=== PATIENT | male | born 1950 | race Caucasian/White ===

== ENCOUNTER 2025-03-23 11:02 | Inpatient (IN) ==
--- NOTE | 2025-03-23 11:53 | Emergency Department Note ---
Impression & Plan Cancer related pain, Pathologic acetabular fracture, Lytic bone lesion of hip ED Provider Note NAME: MELLY PEREZ AGE: 74 SEX: M : 1950 ARRIVES VIA: Walk-In INFORMANT: Patient ED PROVIDER(S): Rios Dempsey MD CHIEF COMPLAINT: Right hip/back pain PLAN: Disposition: Admit MEDICAL DECISION MAKING: The patient is a pleasant 74-year-old gentleman with a past medical history of Hypertension, hyperlipidemia, GERD who presents to emergency department via walk-in accompanied by his for evaluation of persistent severe right hip and back pain for the past several weeks in setting of an outpatient workup for lumbar degenerative disease where he has been referred to neurosurgery. They report that the patient had a CT scan of his lumbar spine several weeks ago and then had an x-ray performed recently as well of his right hip that showed no acute fractures. The patient denies any urinary retention or loss of bowel control. [facility] records obtained and CT of the lumbar spine without contrast on 12/24 demonstrated ligamentum flavum hypertrophy with associated mild to moderate spinal canal stenosis at the level of L2-L3, L3-L4 and L4-L5. Mild to moderate narrowing of the thecal sac as described. Bilateral neuroforaminal stenosis is also noted though severity is greater on the left than right. Patient's reports that because of the more severe left-sided findings which did not correlate with the patient's pain she grew more suspicious and wanted to make sure that the patient's pain was not related to something else. Thus he had an x-ray performed of bilateral hips and pelvis which demonstrated bilateral hip osteoarthritis. Note is made of a stable subchondral lucency seen at the anterior superior aspect of the acetabulum which appears grossly unchanged since multiple prior radiographs where pelvis x-ray from 2018 is noted as a comparison. Of note, the patient reports a remote history of a titanium plate on his skull where he was told by his surgeon that because of the screws he could never have an MRI. On evaluation the patient is no distress, afebrile with blood pressure 150/80s and vital signs otherwise stable. He exhibits mild discomfort with palpation of the right gluteal region inferior to the PSIS. He has normal strength in bilateral lower extremities. Reflex within normal limits. There is no clonus. L5 intact bilaterally. Right hip with limited range of motion secondary to pain. WBC and platelet within normal limits. H/H 12.7/30.5 without recent for comparison. Chemistry without metabolic acidosis. Electrolytes LFTs unremarkable. HS troponin 3.4, within normal limits. UA without evidence of infection. RBCs are noted and are nonspecific. CT of the ab pelvis and CT lumbar spine were performed. Findings are notable for several lytic skeletal lesions the largest measuring 5.4 x 3.5 cm in the right acetabulum with associated nondisplaced pathologic acetabular fracture and adjacent enhancing soft tissue suggestive of tumor extension. The findings favor metastatic disease though multiple myeloma is within the differential. Note is made of clustered pathologic distal paraesophageal lymph nodes suggestive of jayshree metastases. A 1.2 cm left lower lobe pulmonary nodule is also suspicious for metastases. Description of the hypodensity in the right internal iliac vein favors mixing artifact though DVT could appear similar. Clinically the patient has no lower extremity swelling but patient's pain is confounding in the setting of his lytic lesion. Case was discussed with Dr. Cuellar, orthopedic surgery. Given involvement of the acetabulum and underlying pathologic fracture with undiagnosed malignancy recommends transfer to tertiary care center where Orthopedic-oncology is available. Case was discussed with Dr. Ellis, [place] hematology-oncology. Will defer to orthopedic recommendations for disposition but if patient were to stay at our facility he will be available for inpatient team consultation for new malignancy evaluation/workup. Case was discussed with [facility] [place] with conference including Dr. Chaudhary, [facility] [place]opedic[facility] and Lele Herr [place] orthopedic surgery MARILYNN. Per Dr. Chaudhary, [facility] Orthopedic[facility]oncology, who was able to review images which were sent via [employer] image, recommendations would be for the patient to maintain touchdown weightbearing as tolerated with use of a walker. Thus no indication for transfer to [facility] at this time and patient can remain at our facility for further evaluation and management. He will be available for outpatient evaluation when appropriate to address the patient's acetabular findings. Case was discussed with Dr. Zapata, [facility] hospitalist, who will evaluate the patient for admission. Of note, D-dimer subsequently elevated at 4K. Admitting team aware. Further management per admitting team. Appreciate consultations and recommendations. Triage Nursing notes reviewed and agree them. Prior/external medical records reviewed Vital Signs: reviewed Differential diagnosis: Fracture, subluxation, dislocation, contusion, ligamentous injury, neurovascular, compartment syndrome, rhabdomyolysis, as well as other pathologies. ER treatment provided: See below. Diagnostics interpreted by me: ECG: Normal sinus rhythm, 70 bpm, no ectopy, no overt ST elevation or depression, QTc 421, QRS 84. Cardiac Monitoring: An order for continuous cardiac monitoring was placed and demonstrated normal sinus rhythm, 70 bpm, no ectopy. Laboratory studies: See below Imaging studies: See below Consultation(s): Dr. Cuellar, orthopedic surgery Lele Herr, orthopedic surgery MARILYNN Dr. Ellis, [place] hematology-oncology Dr. Chaudhary, [facility] ortho-oncology HPI: Per MDM. ROS: See above HPI for pertinent positives & negatives. A total of 10 systems reviewed and were otherwise negative. VITALS:See Below PHYSICAL EXAMINATION: GENERAL: Awake, alert, in no distress HENT: Normocephalic, atraumatic. Oropharynx with dry mucous membranes and otherwise unremarkable. EYES: Normal conjunctiva. Sclera non-icteric. NECK: Supple. No nuchal rigidity. FROM. No JVD. RESPIRATORY: Clear to auscultation. CARDIAC: Regular rate, normal rhythm. Extremities warm and well perfused. Pulses equal. ABDOMEN: Soft, non-distended. No tenderness to palpation. No rebound or guarding. No masses. MUSCULOSKELETAL: Chest examination reveals no tenderness. The back is symmetrical on inspection without obvious abnormality. mild discomfort with palpation of the right gluteal region inferior to the PSIS. There is no CVA tenderness to palpation. No joint edema. Right hip with limited range of motion secondary pain. LOWER EXTREMITIES: Calves are equal size bilaterally and non-tender. No edema. No discoloration. NEURO: Normal sensorium. No focal sensory or motor deficits noted. Normal strength in bilateral lower extremities. Reflex within normal limits. There is no clonus. L5 intact bilaterally. SKIN: No rash or jaundice noted. Rios Dempsey MD Past Med/Surg History Problem List (Updated 03/24/25 @ 01:59 by Rios Dempsey MD) Lytic bone lesion of hip (Acute) Pathologic acetabular fracture (Acute) Severe protein-calorie malnutrition Cancer related pain (Acute) 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 Carpal tunnel syndrome, right Ulnar neuropathy at elbow of right upper extremity Rhinitis Hypercholesterolemia (Acute) Detached retina (Acute) Sensorineural hearing loss (SNHL) of both ears Tinnitus of both ears Asymmetrical right sensorineural hearing loss (Acute) Hearing loss (Acute) TMJ (dislocation of temporomandibular joint) (Acute) Pain in left axilla (Acute) Medical History GERD (gastroesophageal reflux disease) Pneumothorax Palpitations Surgical History History of knee surgery History of inguinal hernia repair History of cholecystectomy History of back surgery Family History Mother Diabetes Heart disease Father Heart disease Social History Smoking Status: Former smoker Cigarettes Per Day: up to 1 pack per day; Do You Dip or Chew Tobacco: No; Hx Alcohol Use: Yes Alcohol Intake Frequency Comment: socially/weekends Hx Substance Use: No Preferred Language: Maldivian Communication Ability: Effective Fur Dresser Required: No Beliefs That Will Affect Care: None Current Living Situation: Spouse Feels Safe at Home: Yes Assistive Devices: Walker Allergies Allergies Allergy/AdvReac Type Severity Reaction Status Date / Time naproxen Allergy Intermediate "I get Verified 01/28/25 08:11 numb in my face" Home Meds Home Medications Medication Instructions Recorded Confirmed loteprednol etabonate 0.5 % eye 0 drp ophthalmic (eye) UD 05/28/19 03/23/25 gel drops multivitamin (Daily Multi-Vitamin 1 tab PO DAILY 05/28/19 03/23/25 tablet) timolol maleate 0.5 % once daily 0 drp ophthalmic (eye) DAILY 05/28/19 03/23/25 eye drops coenzyme Q10 30 mg capsule (CoQ-10) 30 mg PO DAILY 12/26/19 03/23/25 ascorbate calcium (vitamin C) 500 500 mg PO DAILY 04/26/22 03/23/25 mg tablet diclofenac sodium 50 mg 50 mg PO BID 03/23/25 03/23/25 tablet,delayed release fluticasone propionate 50 0 spray intranasal DAILY PRN 03/23/25 03/23/25 mcg/actuation nasal Congestion spray,suspension gabapentin 100 mg capsule 100 mg PO BID 03/23/25 03/23/25 metoprolol succinate 25 mg 25 mg PO BID 03/23/25 03/23/25 tablet,extended release 24 hr omeprazole 40 mg capsule,delayed 40 mg PO DAILY 03/23/25 03/23/25 release paroxetine HCl 20 mg tablet 0 mg PO DAILY 03/23/25 03/23/25 rosuvastatin 10 mg tablet 10 mg PO DAILY 03/23/25 03/23/25 Previous Rx's Medication Instructions Recorded azelastine 137 mcg (0.1 %) nasal 2 spray intranasal BID 6 weeks #30 08/26/24 spray mL Results & Data (ED) Vital Signs Vital Signs - 24 hr 03/23/25 11:18 03/23/25 13:02 03/23/25 13:04 Temperature 36.6 C Temperature Source Temporal Artery Scan Pulse Rate 72 64 Pulse Rate [Finger] 64 Pulse Rhythm Regular Pulse Rhythm [Finger] Regular Pulse Strength [Finger] Normal Respiratory Rate 18 18 18 Respiratory Effort / Characteristics Non-Labored Spontaneous Non-Labored Spontaneous Respiratory Depth Normal Normal Respiratory Pattern Regular Regular Blood Pressure 155/87 H Blood Pressure [Left Arm] 139/91 Blood Pressure Mean 109 Blood Pressure Mean [Left Arm] 107 Blood Pressure Position [Left Arm] Semi-fowlers Pulse Oximetry 97 98 98 Oxygen Delivery Method Room Air Room Air Room Air Sepsis Recent Fever Within 48 Hours No Sepsis New/Unexplained Change in Mental Status N/A Sepsis Action Taken by Nursing No Action Required 03/23/25 14:28 03/23/25 16:27 03/23/25 19:00 Temperature Temperature Source Pulse Rate Pulse Rate [Finger] 64 71 72 Pulse Rhythm Pulse Rhythm [Finger] Regular Regular Pulse Strength [Finger] Normal Normal Respiratory Rate 16 18 18 Respiratory Effort / Characteristics Non-Labored Spontaneous Non-Labored Spontaneous Respiratory Depth Normal Normal Respiratory Pattern Regular Regular Blood Pressure Blood Pressure [Left Arm] 146/83 H 161/122 H 152/87 H Blood Pressure Mean Blood Pressure Mean [Left Arm] 104 135 108 Blood Pressure Position [Left Arm] Sitting Semi-fowlers Lying Pulse Oximetry 98 100 97 Oxygen Delivery Method Room Air Room Air Room Air Sepsis Recent Fever Within 48 Hours Sepsis New/Unexplained Change in Mental Status Sepsis Action Taken by Nursing 03/23/25 20:00 Temperature Temperature Source Pulse Rate Pulse Rate [Finger] 76 Pulse Rhythm Pulse Rhythm [Finger] Regular Pulse Strength [Finger] Normal Respiratory Rate 20 Respiratory Effort / Characteristics Non-Labored Spontaneous Respiratory Depth Normal Respiratory Pattern Regular Blood Pressure Blood Pressure [Left Arm] 148/82 H Blood Pressure Mean Blood Pressure Mean [Left Arm] 104 Blood Pressure Position [Left Arm] Lying Pulse Oximetry 95 Oxygen Delivery Method Room Air Sepsis Recent Fever Within 48 Hours Sepsis New/Unexplained Change in Mental Status Sepsis Action Taken by Nursing Laboratory Data Attestation: I reviewed the patient's lab results. 03/23/25 12:14 03/23/25 12:14 Lab Results 03/23/25 03/23/25 Range/Units 12:14 19:09 WBC 10.17 (4.8-10.8) K/ul RBC 4.20 L (4.70-6.10) M/uL Hgb 12.7 L (14.0-18.0) g/dl Hct 38.5 L (42.0-52.0) % MCV 91.7 (80.0-100.0) fL MCH 30.2 (25.0-34.0) pg MCHC 33.0 (32.0-36.0) g/dL RDW Std Deviation 41.2 (36.4-46.3) fL RDW Coeff of Ross 12.5 (11.5-14.5) % Plt Count 250 (130-400) K/uL MPV 8.9 L (9.4-12.4) fL Immature Gran % (Auto) 0.6 % Neut % (Auto) 74.9 % Lymph % (Auto) 10.4 % Mobile % (Auto) 9.6 % Eos % (Auto) 4.1 % Baso % (Auto) 0.4 % Neut # (Auto) 7.61 H (1.40-6.50) K/uL Lymph # (Auto) 1.06 L (1.20-3.40) K/uL Mobile # (Auto) 0.98 H (0.11-0.59) K/uL Eos # (Auto) 0.42 (0.00-0.50) K/uL Baso # (Auto) 0.04 (0.00-0.20) K/uL Immature Gran # (Auto) 0.06 (0.01-0.20) K/uL PT 11.1 (9.0-12.0) Seconds INR 1.0 (0.9-1.1) APTT 29 (21-31) Seconds PTT Ratio 1.1 D-Dimer 4180 H* (0-500) ug/L FEU Sodium 137 (136-145) mmol/L Potassium 4.5 (3.5-5.1) mmol/L Chloride 100 (98-107) mmol/L Carbon Dioxide 32 (21-32) mmol/L Anion Gap 5 (3-11) BUN 19 (6-23) mg/dl Creatinine 0.85 (0.6-1.4) mg/dl Est Cr Clr Drug Dosing 82.1 ml/min eGFR 90.62 BUN/Creatinine Ratio 22.4 H (10-20) Glucose 102 H (70-99(Fasting)) mg/dl Calcium 9.6 (8.6-10.3) mg/dl Magnesium 2.0 (1.7-2.4) mg/dl Total Bilirubin 0.6 (0.2-1.0) mg/dl AST 28 (13-39) U/L ALT 27 (7-52) U/L Alkaline Phosphatase 71 (34-104) U/L Lactate Dehydrogenase 254 H (86-244) U/L Troponin I High Sens 3.4 (0-20) pg/ml Total Protein 7.2 (6.0-8.3) gm/dl Albumin 4.1 (3.4-5.0) gm/dl Globulin 3.1 (2.5-4.0) gm/dl Albumin/Globulin Ratio 1.3 (0.9-2) Carcinoembryonic Ag 1.6 (0-2.5) ng/ml Prostate Specific Ag 0.987 (0-4) ng/ml TSH 2.127 (0.300-4.500) uIu/ml Urine Color Yellow Urine Appearance Clear (Clear) Urine pH 6.5 (4.5-7.5) Ur Specific [place] 1.020 (1.000-1.030) Urine Protein Negative (Negative) Urine Glucose (UA) Negative (Negative) Urine Ketones Trace H (Negative) Urine Blood 2+ H (Negative) Urine Nitrite Negative (Negative) Urine Bilirubin Negative (Negative) Urine Urobilinogen Negative (Negative) Ur Leukocyte Esterase Negative (Negative) Urine WBC (Auto) 0-5 (0-5) /hpf Urine RBC (Auto) >20 H (0-2) /hpf U Hyaline Cast (Auto) 0-2 (0-2) /lpf U Epithel Cells (Auto) 0-2 (0-2) /hpf Urine Bacteria (Auto) None Seen (None Seen) Urine Comment Administered Medications Hydromorphone HCl (Hydromorphone Inj 0.5 Mg/0.5 Ml Syr) 0.5 mg IV Q3HWA PRN PRN Reason: Breakthrough Pain Stop: 04/06/25 21:08 Last Admin: 03/24/25 00:08 Dose: 0.5 mg Documented By: NORMA Lactated Ringer's (Lr) 1,000 mls @ 100 mls/hr IV .Q10H [facility] Stop: 03/24/25 07:00 Last Admin: 03/23/25 22:20 Dose: 100 mls/hr Documented By: GEORGINA Oxycodone HCl (Oxycodone Hcl Ir 5 Mg Tab (Immediate Release)) 5 mg PO Q3HWA PRN PRN Reason: Severe Pain (Scale 7, 8, 9,10) Stop: 04/06/25 21:08 Last Admin: 03/23/25 22:20 Dose: 5 mg Documented By: GEORGINA Pantoprazole Sodium (Pantoprazole 40 Mg Tab) 40 mg PO BID [facility] Stop: 04/22/25 21:44 Last Admin: 03/23/25 22:18 Dose: 40 mg Documented By: GEORGINA Discontinued Medications Dexamethasone Sodium Phosphate (DexamethasonePf 10 Mg/Ml Vial) 10 mg IV NOW ONE Stop: 03/23/25 12:02 Last Admin: 03/23/25 12:16 Dose: 10 mg Documented By: Heparin Sodium (Porcine) (Heparin Sod (Porcine) 1000 Unit/Ml) 6,000 units IV NOW ONE Stop: 03/23/25 21:47 Last Admin: 03/23/25 22:14 Dose: 6,000 units Documented By: GEORGINA Co-signed By: IDMagen Heparin Sodium/Dextrose (Heparin Iv Adult Wt-Based Standard W/ Initial Bolus Protocol) 1 each IV NOW STA; Protocol Stop: 03/23/25 21:32 Last Admin: 03/23/25 23:08 Dose: Not Given Documented By: NORMA Sodium Chloride (Nss) 1,000 mls @ 999 mls/hr IV .Q1H1M ONE Stop: 03/23/25 13:00 Last Infusion: 03/23/25 13:07 Dose: Infused Documented By: Admin: 03/23/25 12:16 Dose: 999 mls/hr Documented By: Acetaminophen (Ofirmev) 1,000 mg in 100 mls @ 400 mls/hr IV NOW STA Stop: 03/23/25 12:14 Last Infusion: 03/23/25 13:07 Dose: Infused Documented By: Admin: 03/23/25 12:16 Dose: 400 mls/hr Documented By: Famotidine (Pepcid 20mg Iv Push) 20 mg in 5 mls @ 2.5 mls/min IV NOW STA Stop: 03/23/25 12:04 Last Admin: 03/23/25 12:16 Dose: 2.5 mls/min Documented By: Heparin Sodium/Dextrose (Heparin 48012 Unit/500 Ml D5w) 25,000 units in 500 mls @ 28 mls/hr IV .[id number] [facility]; Protocol Stop: 04/22/25 21:59 Last Titration: 03/23/25 23:30 Dose: Infused Documented By: NORMA Co-signed By: RES Admin: 03/23/25 22:12 Dose: 1,400 units/hr, 28 mls/hr Documented By: GEORGINA Co-signed By: [facility] Ioversol (Optiray 320 100ml) 94 ml IV ONCE ONE Stop: 03/23/25 14:06 Last Admin: 03/23/25 14:06 Dose: 94 ml Documented By: MONIQUE Ioversol (Optiray 320 125ml) 115 ml IV ONCE ONE Stop: 03/23/25 21:33 Last Admin: 03/23/25 21:34 Dose: 115 ml Documented By: JORGE Ketorolac Tromethamine (Ketorolac Tromethamine 15 Mg/Ml Vial) 15 mg IV NOW STA Stop: 03/23/25 12:02 Last Admin: 03/23/25 12:16 Dose: 15 mg Documented By: Lidocaine (Lidocaine 5% 1 Patch) 1 patch TD NOW STA Stop: 03/23/25 12:02 Last Admin: 03/23/25 12:15 Dose: 1 patch Documented By: Miscellaneous (Remove Lidoderm Patch) 1 each N/A DAILY@2100 EZEQUIEL Stop: 03/23/25 21:01 Last Admin: 03/23/25 23:08 Dose: Not Given Documented By: [facility] Miscellaneous ((Loteprednol Etabonate 0.5 % Drops,Gel)Order Awaiting Action) 1 each N/A QS EZEQUIEL Stop: 04/22/25 23:29 Last Admin: 03/24/25 00:24 Dose: Not Given Documented By: [facility] Imaging Data Radiologist's Impression: Abdomen/Pelvis CT 03/23/25 11:57 CT SCAN OF THE ABDOMEN AND PELVIS WITH IV CONTRAST CLINICAL HISTORY: Right lumbar and right leg pain. COMPARISON STUDY: None. TECHNIQUE: Following the IV administration of 94 cc of Optiray 320, CT scan of the abdomen and pelvis is performed from the lung bases to the proximal femora. Images are reviewed in the axial, sagittal, and coronal planes. IV contrast was administered without complication. A dose lowering technique was utilized adhering to the principles of ALARA. FINDINGS: Emphysema is incidentally noted within the visualized lung bases. There is a 1.2 cm left lower lobe pulmonary nodule on image 23 of 365. There is no pneumatosis, free air or portal venous gas. There are clustered pathologic distal paraesophageal lymph nodes. Index node on image 40 measures 2.3 x 2 cm. No additional sites of lymphadenopathy are identified. Subcentimeter hypodense hepatic lesions favor cysts. There is no biliary ductal dilatation status post cholecystectomy. Adrenal glands, kidneys and pancreas are unremarkable. There is no hydronephrosis. There is extensive colonic diverticulosis without evidence for acute diverticulitis. Bladder wall thickening is accentuated by underdistention. There is no hydronephrosis. Inguinal hernia repairs are incidentally noted. Central hypodensity within the right internal iliac vein on image 245 is present. This may represent mixing artifact. Of note, several lytic skeletal lesions are noted, the largest which is a 5.4 x 3.5 cm right acetabular lesion with associated pathologic fracture and cortical disruption. Adjacent enhancing soft tissue is present. A smaller medial right iliac bone lesion on image 245 measures 3.1 cm. The lumbar spine CT will be reported separately. IMPRESSION: 1. Several lytic skeletal lesions, the largest which is a 5.4 x 3.5 cm right acetabular lesion with associated nondisplaced pathologic acetabular fracture and adjacent enhancing soft tissue suggestive of tumor extension. The findings favor metastatic disease. Myeloma is within the differential but considered less likely. 2. Clustered pathologic distal paraesophageal lymph nodes suggestive of jayshree metastases. A CT of the chest with contrast might be considered for further evaluation. 3. 1.2 cm left lower lobe pulmonary nodule suspicious for a metastasis. The remainder of the lungs can be assessed on the chest CT. 4. Central hypodensity within the right internal iliac vein. This favors mixing artifact however deep venous thrombus could appear similar. This could be assessed with a CT venogram. ACT 112: Negative or not required by law. Electronically signed by: Tyrone Mckeon M.D. 03/23/2025 2:[address] 03/23/25 11:57 CT SCAN OF THE LUMBAR SPINE WITH IV CONTRAST CLINICAL HISTORY: Low back pain. Leg pain. COMPARISON STUDY: No priors. TECHNIQUE: Following the IV administration of 94 cc of Optiray 320, CT scan of the lumbar spine is performed from the lower thoracic spine to the sacrum. Images are reviewed in the axial, sagittal, and coronal planes. IV contrast was administered without complication. A dose lowering technique was utilized adhering to the principles of ALARA. CT DOSE: 918.97 mGy.cm FINDINGS: The skeletal structures are heterogeneously osteopenic. There is no evidence of fracture or malalignment involving the lumbar spine. Vertebral body height and alignment are maintained throughout the lumbar spine. The transverse and spinous processes appear intact. There is no spondylolysis. Anterior and lateral marginal osteophytes are seen throughout. There is moderate to severe disc space narrowing at L3-L4, L4-L5, and L5-S1. Posterior disc osteophyte complexes are seen at all lumbar levels. There is no CT evidence of large disc herniation or high-grade central canal stenosis. There is a left lateral disc extrusion at L5-S1 seen on axial image #335. This causes severe neural foraminal stenosis with impingement on the exiting left L5 nerve root. Mild facet arthropathy is noted in the lower lumbar region. Imaged portions of the sacrum and bony pelvis appear intact. A 3 cm osteolytic metastasis in the right iliac bone is seen on image #410. There may be an additional osteolytic lesion in the body of L5 seen on sagittal image #37. No additional destructive bony lesions are clearly seen in the lumbar spine. A Schmorl's node is noted in the superior endplate of L2. The paraspinous soft tissues are within normal limits. Emphysematous change is noted at the lung bases. There is a fat-containing Bochdalek hernia on the left. There is moderate to advanced atherosclerotic calcification and ectasia of the abdominal aorta. No retroperitoneal lymphadenopathy is seen. There are pathologically enlarged lymph nodes just below the gastroesophageal junction, with the largest is seen on image #29 measuring 2.5 x 1.9 cm. IMPRESSION: 1. No acute bony abnormality seen involving the lumbar spine. 2. 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 There may be an additional osteolytic lesion in the body of L5. Additionally, there are pathologically enlarged lymph nodes just below the gastroesophageal junction. These findings are neoplastic in etiology. Correlate for any oncological history. 3. Osteopenia and degenerative change as above. 4. Emphysema. ACT 112: Positive. There are findings on this exam that require communication between the performing entity and the patient following Patient Test Result Information Act ([place] Act 112) guidelines. Electronically signed by: Jemal Guillermo M.D. 03/23/2025 2:42 PM Discharge Plan Visit Data Chief Complaint: Back Injury/Pain Stated Complaint: RELENTING BACK, R HIP AND LEG PAIN ED Provider: Rios Dempsey Discharge Problem: Cancer related pain, Pathologic acetabular fracture, Lytic bone lesion of hip Patient Disposition: Admitted As Inpatient Condition: Serious Discharge Instructions Interventions: ED Discharge Assessment Last Done: 03/23/25 22:31 Discharge Problem: Pathologic acetabular fracture Qualifiers: Encounter type: initial encounter Laterality: right Qualified Code(s): M84.454A - Pathological fracture, pelvis, initial encounter for fracture
[2025-03-23] MEDS: LIDOCAINE 5% 1 PATCH TD STA (12:15)
[2025-03-23] MEDS: KETOROLAC TROMETHAMINE 15 MG/ML VIAL IV STA (12:16)
[2025-03-23] MEDS: FAMOTIDINE 20MG IV PUSH 20 MG/5 ML SYR IV STA (12:16)
[2025-03-23] MEDS: ACETAMINOPHEN 1,000 MG/100 ML VIAL IV STA (12:16)
[2025-03-23] MEDS: dexAMETHasone**PF** 10 MG/ML VIAL IV ONE (12:16)
[2025-03-23] MEDS: SODIUM CHLORIDE 0.9% 1,000 ML IV ONE (12:16)
[2025-03-23 12:42] LABS: Hematocrit (blood only) 38.5 % (42.0-52.0); Hemoglobin 12.7 g/dl (14.0-18.0); Immature Granulocytes # (auto) 0.06 K/uL (0.01-0.20); Immature Granulocytes % (auto) 0.6 %; Mean Corpuscular Hemoglobin 30.2 pg (25.0-34.0); Mean Corpuscular Volume 91.7 fL (80.0-100.0); Platelet Count 250 K/uL (130-400); RDW Standard Deviation 41.2 fL (36.4-46.3); Red Blood Count 4.20 M/uL (4.70-6.10); White Blood Count 10.17 K/ul (4.8-10.8)
--- NOTE | 2025-03-23 12:43 | XRay Report ---
XR chest 1V portable CLINICAL HISTORY: Chest pain. COMPARISON STUDY: Chest CT and chest radiograph September 02, 2022. FINDINGS: Lung volumes are normal. There is no consolidation to suggest pneumonia. Subpleural right a pical density is unchanged and favors scarring. There is no pneumothorax or pleural effusion. Cardiac size is normal. Mediastinal contours are normal. There is no evidence for pulmonary edema. IMPRESSION: No acute cardiopulmonary findings. No change in appearance of the chest. ACT 112: Negative or not required by law. Electronically signed by: Tyrone Mckeon M.D. 03/23/2025 12:42 PM
[2025-03-23 12:47] LABS: Appearance Urine Clear (Clear); Bacteria Urine Automated None Seen (None Seen); Cast Urine Automated 0-2 /lpf (0-2); Epithelial Cell Urine Auto 0-2 /hpf (0-2); Glucose Urine UA Negative (Negative); RBC Urine Automated >20 /hpf (0-2); WBC Urine Automated 0-5 /hpf (0-5)
[2025-03-23 13:04] LABS: Alanine Aminotransferase 27.0 U/L (7-52); Albumin Globulin Ratio 1.3 (0.9-2); Alkaline Phosphatase 71.0 U/L (34-104); Anion Gap 5.0 (3-11); Bilirubin,Total 0.6 mg/dl (0.2-1.0); Blood Urea Nitrogen 19.0 mg/dl (6-23); Calcium 9.6 mg/dl (8.6-10.3); Carbon Dioxide 32.0 mmol/L (21-32); Chloride 100.0 mmol/L (98-107); Creatinine Clr Calc Pharmacy 82.1 ml/min; Globulin 3.1 gm/dl (2.5-4.0); Glucose 102.0 mg/dl (70-99(Fasting)); Magnesium 2.0 mg/dl (1.7-2.4); Potassium 4.5 mmol/L (3.5-5.1); Sodium 137.0 mmol/L (136-145); Total Protein 7.2 gm/dl (6.0-8.3)
[2025-03-23 13:08] LABS: INR 1.0 (0.9-1.1); Prothrombin Time 11.1 Seconds (9.0-12.0)
[2025-03-23 13:16] LABS: Thyroid Stimulating Hormone 2.127 uIu/ml (0.300-4.500)
[2025-03-23] MEDS: OPTIRAY 320 100ml IV ONE (14:06)
--- NOTE | 2025-03-23 14:43 | CT Scan Report ---
CT SCAN OF THE ABDOMEN AND PELVIS WITH IV CONTRAST CLINICAL HISTORY: Right lumbar and right leg pain. COMPARISON STUDY: None. TECHNIQUE: Following the IV administration of 94 cc of Optiray 320, CT scan of the abdomen and pelvi s is performed from the lung bases to the proximal femora. Images are reviewed in the axial, sagittal , and coronal planes. IV contrast was administered without complication. A dose lowering technique wa s utilized adhering to the principles of ALARA. FINDINGS: Emphysema is incidentally noted within the visualized lung bases. There is a 1.2 cm left lo wer lobe pulmonary nodule on image 23 of 365. There is no pneumatosis, free air or portal venous gas. There are clustered pathologic distal paraesophageal lymph nodes. Index node on image 40 measures 2. 3 x 2 cm. No additional sites of lymphadenopathy are identified. Subcentimeter hypodense hepatic lesi ons favor cysts. There is no biliary ductal dilatation status post cholecystectomy. Adrenal glands, k idneys and pancreas are unremarkable. There is no hydronephrosis. There is extensive colonic divertic ulosis without evidence for acute diverticulitis. Bladder wall thickening is accentuated by underdist ention. There is no hydronephrosis. Inguinal hernia repairs are incidentally noted. Central hypodensi ty within the right internal iliac vein on image 245 is present. This may represent mixing artifact. Of note, several lytic skeletal lesions are noted, the largest which is a 5.4 x 3.5 cm right acetabul ar lesion with associated pathologic fracture and cortical disruption. Adjacent enhancing soft tissue is present. A smaller medial right iliac bone lesion on image 245 measures 3.1 cm. The lumbar spine CT will be reported separately. IMPRESSION: 1. Several lytic skeletal lesions, the largest which is a 5.4 x 3.5 cm right acetabular lesion with a ssociated nondisplaced pathologic acetabular fracture and adjacent enhancing soft tissue suggestive o f tumor extension. The findings favor metastatic disease. Myeloma is within the differential but cons idered less likely. 2. Clustered pathologic distal paraesophageal lymph nodes suggestive of jayshree metastases. A CT of the chest with contrast might be considered for further evaluation. 3. 1.2 cm left lower lobe pulmonary nodule suspicious for a metastasis. The remainder of the lungs ca n be assessed on the chest CT. 4. Central hypodensity within the right internal iliac vein. This favors mixing artifact however deep venous thrombus could appear similar. This could be assessed with a CT venogram. ACT 112: Negative or not required by law. Electronically signed by: Tyrone Mckeon M.D. 03/23/2025 2:42 PM
--- NOTE | 2025-03-23 14:43 | CT Scan Report ---
CT SCAN OF THE LUMBAR SPINE WITH IV CONTRAST CLINICAL HISTORY: Low back pain. Leg pain. COMPARISON STUDY: No priors. TECHNIQUE: Following the IV administration of 94 cc of Optiray 320, CT scan of the lumbar spine is p erformed from the lower thoracic spine to the sacrum. Images are reviewed in the axial, sagittal, and coronal planes. IV contrast was administered without complication. A dose lowering technique was uti lized adhering to the principles of ALARA. CT DOSE: 918.97 mGy.cm FINDINGS: The skeletal structures are heterogeneously osteopenic. There is no evidence of fracture or malalignment involving the lumbar spine. Vertebral body height and alignment are maintained througho ut the lumbar spine. The transverse and spinous processes appear intact. There is no spondylolysis. A nterior and lateral marginal osteophytes are seen throughout. There is moderate to severe disc space narrowing at L3-L4, L4-L5, and L5-S1. Posterior disc osteophyte complexes are seen at all lumbar leve ls. There is no CT evidence of large disc herniation or high-grade central canal stenosis. There is a left lateral disc extrusion at L5-S1 seen on axial image #335. This causes severe neural foraminal s tenosis with impingement on the exiting left L5 nerve root. Mild facet arthropathy is noted in the lo wer lumbar region. Imaged portions of the sacrum and bony pelvis appear intact. A 3 cm osteolytic met astasis in the right iliac bone is seen on image #410. There may be an additional osteolytic lesion i n the body of L5 seen on sagittal image #37. No additional destructive bony lesions are clearly seen in the lumbar spine. A Schmorl's node is noted in the superior endplate of L2. The paraspinous soft t issues are within normal limits. Emphysematous change is noted at the lung bases. There is a fat-cont aining Bochdalek hernia on the left. There is moderate to advanced atherosclerotic calcification and ectasia of the abdominal aorta. No retroperitoneal lymphadenopathy is seen. There are pathologically enlarged lymph nodes just below the gastroesophageal junction, with the largest is seen on image #29 measuring 2.5 x 1.9 cm. IMPRESSION: 1. No acute bony abnormality seen involving the lumbar spine. 2. 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 There may be an additiona l osteolytic lesion in the body of L5. Additionally, there are pathologically enlarged lymph nodes ju st below the gastroesophageal junction. These findings are neoplastic in etiology. Correlate for any oncological history. 3. Osteopenia and degenerative change as above. 4. Emphysema. ACT 112: Positive. There are findings on this exam that require communication between the performing entity and the patient following Patient Test Result Information Act ([place] Act 112) guidelines. Electronically signed by: Jemal Guillermo M.D. 03/23/2025 2:42 PM
--- NOTE | 2025-03-23 15:45 | Electrocardiogram Report ---
Test Reason : Blood Pressure : */* mmHG Vent. Rate : 70 BPM Atrial Rate : 70 BPM P-R Int : 138 ms QRS Dur : 84 ms QT Int : 390 ms P-R-T Axes : -24 -5 -11 degrees QTcB Int : 421 ms Normal sinus rhythm Normal ECG When compared with ECG of 02-Sep-2022 15:01, T wave inversion now evident in Inferior leads Confirmed by Skyler Wing ([id number]) on 03/23/2025 3:45:31 PM Referred By: REFERRED SELF Confirmed By: Skyler Wing
--- NOTE | 2025-03-23 21:02 | History & Physical Report ---
Date of Service March 23, 2025 Assessment & Plan (1) Corneal transplant status: (2) Disseminated malignancy of unknown primary: (3) Cancer related pain: (4) Severe protein-calorie malnutrition: (5) GERD (gastroesophageal reflux disease): Plan 74 yo male with pmhx of Fuchs corneal dystrophy (s/p cornea transplant), BPH, aortic valve insufficiency, GERD, depression, anxiety, bilateral LE varicose veins, HLD, and hx of vtach who presents for right hip and back pain 2/2 likely malignancy of unknown primary and lytic fracture of right hip. #Right Acetabular Fracture #Stage IV Malignancy of Unknown Primary -patient has lytic lesions throughout right hip, esophagus and lung consistent with metastatic disease -unclear primary at this time, considerations to esophageal/lung (given smoking hx), bladder (given blood on urine), colon, or prostate/multiple myeloma, less likely lymphoma, pancreatic, liver, gastric given imaging findings -much lower on differential includes infiltrative diseases -discussed findings with patient and , next steps Plan: -check CTA PE protocol, US bladder, and CT head with contrast for imaging workup -check LDH, CEA, CA-19-9 and PSA for metabolic workup -IR bone biopsy of right hip ordered, NPO after midnight -ortho consult, appreciate recs (order placed) -PT/OT once ortho evaluates patient -oncology consult once biopsy resulted #R/o Right Iliac Vein Thrombosis #Elevated D-Dimer -noted on CT abdomen/pelvis Plan: -CT venogram ordered, CTA PE ordered -start heparin for now, stop if imaging tests negative #Cancer Related Pain -neuropathic and nociceptive components, worst in right hip and back Plan: -start lyrica 25mg tid, stop home gabapentin -start oxycodone 5mg q3hr prn for severe pain, IV dilaudid 0.5 mg for breakthrough pain -start voltaren cream -uptitrate as needed -will need palliative care f/u outpatient -start on protonix given patient has pain in stomach, avoid NSAIDs, also has GERD #Corneal Transplant 2/2 Fuchs Corneal Dystrophy -continue home eye drops #Anxiety #Depression -continue paroxetine #Cachexia #Sarcopenia -as noted by 15 pound weight loss, sunken face on exam, muscle wasting on exam Plan: -district captain consult, appreciate recs I spent a total of 90 minutes in direct patient care, including [id number] time with the patient and/or family, reviewing medical records, ordering and reviewing diagnostic tests, and coordinating care with other healthcare providers. This time includes: history taking, physical examination, medical d ecision making, counseling, ECG interpretation, imaging interpretation, lab interpretation, orders, and education, excluding time spent in the performance of separately billed services. History of Present Illness Chief Complaint: -right hip/back pain Primary Care Provider: Tod Benavides MD 74 yo male with pmhx of Fuchs corneal dystrophy (s/p cornea transplant), BPH, aortic valve insufficiency, GERD, depression, anxiety, bilateral LE varicose veins, HLD, and hx of vtach who presents for right hip and back pain. He has no recent admissions at this institution. In the ED, noted to have metastatic disease of unknown primary in back, lungs, right hip, right hip fracture, per ED ortho did not recommend transfer, admit to medicine for further workup. Patient seen and examined at bedside. present as well. We discussed his imaging findings at length, including likely diagnosis of stage IV malignancy of unknown primary. Discussed next steps, including imaging and lab work. They were appreciative of the update. Patient has been having severe pain in back and right hip for past 4 weeks. Pain has been worsening. Was able to mow lawn 3 weeks ago, now not being able to do many activities of daily living. Describes pain as sharp pain with movement with radiating component down right leg and into groin. Has constant low back pain as well. Has had more trouble urinating over past few weeks. Denies nausea, vomiting, diarrhea, SOB, headache, other associated symptoms. Denies tobacco use, social alcohol use, no drug use, DNRDNI, discussed at length with patient and . 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 Allergies Allergy/AdvReac Type Severity Reaction Status Date / Time naproxen Allergy Intermediate "I get Verified 01/28/25 08:11 numb in my face" Home Medications Medication Instructions Recorded Confirmed Type loteprednol etabonate 0.5 % eye 0 drp ophthalmic (eye) UD 05/28/19 03/23/25 History gel drops multivitamin (Daily Multi-Vitamin 1 tab PO DAILY 05/28/19 03/23/25 History tablet) timolol maleate 0.5 % once daily 0 drp ophthalmic (eye) DAILY 05/28/19 03/23/25 History eye drops coenzyme Q10 30 mg capsule (CoQ-10) 30 mg PO DAILY 12/26/19 03/23/25 History ascorbate calcium (vitamin C) 500 500 mg PO DAILY 04/26/22 03/23/25 History mg tablet azelastine 137 mcg (0.1 %) nasal 2 spray intranasal BID 6 weeks #30 08/26/24 03/23/25 Rx spray mL diclofenac sodium 50 mg 50 mg PO BID 03/23/25 03/23/25 History tablet,delayed release fluticasone propionate 50 0 spray intranasal DAILY PRN 03/23/25 03/23/25 History mcg/actuation nasal Congestion spray,suspension gabapentin 100 mg capsule 100 mg PO BID 03/23/25 03/23/25 History metoprolol succinate 25 mg 25 mg PO BID 03/23/25 03/23/25 History tablet,extended release 24 hr omeprazole 40 mg capsule,delayed 40 mg PO DAILY 03/23/25 03/23/25 History release paroxetine HCl 20 mg tablet 0 mg PO DAILY 03/23/25 03/23/25 History rosuvastatin 10 mg tablet 10 mg PO DAILY 03/23/25 03/23/25 History Past Med/Surg History Problem List (Updated 03/23/25 @ 21:17 by Abhinav Zapata MD) Severe protein-calorie malnutrition Cancer related pain 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 Carpal tunnel syndrome, right Ulnar neuropathy at elbow of right upper extremity Rhinitis Hypercholesterolemia (Acute) Detached retina (Acute) Sensorineural hearing loss (SNHL) of both ears Tinnitus of both ears Asymmetrical right sensorineural hearing loss (Acute) Hearing loss (Acute) TMJ (dislocation of temporomandibular joint) (Acute) Pain in left axilla (Acute) Medical History GERD (gastroesophageal reflux disease) Pneumothorax Palpitations Surgical History History of knee surgery History of inguinal hernia repair History of cholecystectomy History of back surgery Family History Mother Diabetes Heart disease Father Heart disease Social History Smoking Status: Former smoker Cigarettes Per Day: up to 1 pack per day; Hx Alcohol Use: Yes Alcohol Intake Frequency Comment: socially/weekends Preferred Language: Croatian Feels Safe at Home: Yes Review of Systems 2 Review of Systems: -negative unless listed above Physical Exam Physical Exam: Gen: A&O NAD, cachexia and sarcopenia noted HEENT: NCAT, EOMI, not icteric. External ears normal. No rhinorrhea. Moist mucous membranes. Neck: Supple, full range of motion, no observable masses, No meningeal sign. Lungs: No Respiratory distress. CV: RRR, no edema. Abdomen: Soft, nondistended, No rebound tenderness. MSK: No joint swelling, no redness. tenderness to palpation in lower back, right hip Skin: No rashes, petechiae, lesions. Normal color per patient. Neuro: Normal Gait, Grossly intact. Psych: Appropriate for situation. Results & Data Results & Data Vital Signs (Past 12 Hours) Vital Signs Temp Pulse Pulse Resp BP BP Pulse Ox 03/23/25 20:00 76 20 148/82 H 95 03/23/25 19:00 72 18 152/87 H 97 03/23/25 16:27 71 18 161/122 H 100 03/23/25 14:28 64 16 146/83 H 98 03/23/25 13:04 64 18 139/91 98 03/23/25 13:02 64 18 98 03/23/25 11:18 36.6 C 72 18 155/87 H 97 O2 Del Method 03/23/25 20:00 Room Air 03/23/25 19:00 Room Air 03/23/25 16:27 Room Air 03/23/25 14:28 Room Air 03/23/25 13:04 Room Air 03/23/25 13:02 Room Air 03/23/25 11:18 Room Air Laboratory Results -personally reviewed, Hgb slightly below baseline, elevated D-dimer in setting of possible iliac thrombosis, creatinine at baseline, urine with significant RBCs Code Status & VTE Plan Code Status -DNRDNI, discussed with patient and
[2025-03-23] MEDS: OPTIRAY 320 125ml IV ONE (21:34)
[2025-03-23] MEDS: HEPARIN 25000 UNIT/500 ML D5W 25,000 UNITS/500 ML BAG IV SCH (22:12)
[2025-03-23] MEDS: HEPARIN SOD (PORCINE) 1000 UNIT/ML IV ONE (22:14)
[2025-03-23] MEDS: LACTATED RINGER'S 1,000 ML IV SCH (22:20)
--- NOTE | 2025-03-23 22:49 | CT Scan Report ---
Exam(s): CT HEAD With Contrast IV Amt: 115 ml optiray 320 EXAM: CT Head With Intravenous Contrast CLINICAL HISTORY: Reason for exam: r/o brain mets. TECHNIQUE: Axial computed tomography images of the head/brain with intravenous contrast. CTDI is 36.43 mGy and DLP is 702.46 mGy-cm. Automated exposure control was utilized for the study. A dose lowering technique was utilized adhering to the principles of ALARA. CONTRAST: Patient received 115 ml optiray 320 of IV contrast COMPARISON: No relevant prior studies available. FINDINGS: Brain: No enhancing lesion or mass identified. No hemorrhage. Ventricles: Unremarkable. Bones/joints: Unremarkable. No fracture. Soft tissues: Unremarkable. Sinuses: No acute sinusitis. Mastoid air cells: Unremarkable as visualized. IMPRESSION: No enhancing lesion or mass identified. Electronically signed by: Chase Jamil MD 03/23/25 22:48 PM
--- NOTE | 2025-03-23 23:03 | CT Scan Report ---
Exam(s): CTA CHEST IV Amt: 115 ml optiray 320 EXAM: CT Angiography Chest With Intravenous Contrast CLINICAL HISTORY: Reason for exam: PE. TECHNIQUE: Axial computed tomographic angiography images of the chest with intravenous contrast. CTDI is 101.36 mGy and DLP is 3088.24 mGy-cm. Automated exposure control was utilized for the study. A dose lowering technique was utilized adhering to the principles of ALARA. MIP reconstructed images were created and reviewed. COMPARISON: No relevant prior studies available. FINDINGS: Pulmonary arteries: No pulmonary embolism. Aorta: No acute findings. Normal caliber. No dissection. Lungs: Pulmonary nodule in the left lower lobe measuring 1.2 cm. Pleural space: No pleural effusion. No pneumothorax. Heart: Unremarkable. Bones/joints: No acute fracture. Soft tissues: Unremarkable. Lymph nodes: Unremarkable. IMPRESSION: 1. No pulmonary embolism. 2. Pulmonary nodule in the left lower lobe measuring 1.2 cm. Electronically signed by: Chase Jamil MD 03/23/25 23:03 PM
[2025-03-23] MEDS ORDERED: POLYETHYLENE (MIRALAX) 17 GM PACK PO PRN (23:06)
[2025-03-23] MEDS: Heparin IV Adult Wt-Based Standard w/ INITIAL Bolus Protocol IV STA (23:08)
[2025-03-23] MEDS: REMOVE LIDODERM PATCH SCH (23:08)
--- NOTE | 2025-03-23 23:09 | CT Scan Report ---
Exam(s): CT ABDOMEN + PELVIS With Contrast IV Amt: 115 ml optiray 320 EXAM: CT Abdomen and Pelvis With Intravenous Contrast CLINICAL HISTORY: Reason for exam: concern for right iliac vein thrombosis. TECHNIQUE: Axial computed tomography images of the abdomen and pelvis with intravenous contrast. CTDI is 101.36 mGy and DLP is 3088.24 mGy-cm. Automated exposure control was utilized for the study. A dose lowering technique was utilized adhering to the principles of ALARA. CONTRAST: Patient received 115 ml optiray 320 of IV contrast COMPARISON: No relevant prior studies available. FINDINGS: ABDOMEN: Liver: A few scattered subcentimeter low-attenuation lesions in the liver which are incompletely characterized. Gallbladder and bile ducts: Cholecystectomy. Pancreas: Unremarkable. Spleen: Unremarkable. Adrenals: Unremarkable. Kidneys and ureters: Unremarkable. No obstructing stones. No hydronephrosis. Stomach and bowel: Colonic diverticulosis without acute diverticulitis. PELVIS: Appendix: No findings to suggest acute appendicitis. Bladder: Trabeculated bladder. Reproductive: Unremarkable as visualized. ABDOMEN and PELVIS: Intraperitoneal space: Unremarkable. No free air. No significant fluid collection. Bones/joints: Lytic lesion in the right acetabulum measuring 6 cm with a nondisplaced pathologic right superior acetabular fracture. Moderate to severe degenerative changes in the lumbar spine. Soft tissues: Unremarkable. Vasculature: No evidence of DVT.. Lymph nodes: Unremarkable. IMPRESSION: 1. No evidence of DVT. 2. Lytic lesion in the right acetabulum measuring 6 cm with a nondisplaced pathologic right superior acetabular fracture. 3. A few scattered subcentimeter low-attenuation lesions in the liver which are incompletely characterized. Electronically signed by: Chase Jamil MD 03/23/25 23:08 PM
--- NOTE | 2025-03-23 23:09 | Ultrasound Report ---
Exam(s): US BLADDER EXAM: US Bladder CLINICAL HISTORY: Reason for exam: look for bladder mass. TECHNIQUE: Real-time ultrasound of the bladder with image documentation. COMPARISON: No relevant prior studies available. FINDINGS: Trabeculated bladder without nodular thickening. IMPRESSION: Trabeculated bladder without nodular thickening. Electronically signed by: Chase Jamil MD 03/23/25 23:08 PM
[2025-03-23 23:25] LABS: Partial Thromboplastin Time 29 Seconds (21-31)
--- NOTE | 2025-03-23 23:27 | Communication Note ---
Date of Service: March 23, 2025 No evidence of DVT on CT venogram. DC IV heparin
[2025-03-24] MEDS: HYDROmorphone INJ 0.5 MG/0.5 ML SYR IV PRN (00:08)
[2025-03-24 06:49] LABS: Hematocrit (blood only) 36.9 % (42.0-52.0); Hemoglobin 12.5 g/dl (14.0-18.0); Mean Corpuscular Hemoglobin 30.6 pg (25.0-34.0); Mean Corpuscular Volume 90.2 fL (80.0-100.0); Platelet Count 264 K/uL (130-400); RDW Standard Deviation 40.5 fL (36.4-46.3); Red Blood Count 4.09 M/uL (4.70-6.10); White Blood Count 9.76 K/ul (4.8-10.8)
[2025-03-24 07:05] LABS: Anion Gap 6.0 (3-11); Blood Urea Nitrogen 17.0 mg/dl (6-23); Calcium 9.2 mg/dl (8.6-10.3); Carbon Dioxide 30.0 mmol/L (21-32); Chloride 100.0 mmol/L (98-107); Creatinine Clr Calc Pharmacy 88.3 ml/min; Glucose 99.0 mg/dl (70-99(Fasting)); Magnesium 1.9 mg/dl (1.7-2.4); Potassium 4.4 mmol/L (3.5-5.1); Sodium 136.0 mmol/L (136-145)
[2025-03-24] MEDS: ONDANSETRON INJ 2 MG/ML 2 ML VIAL IV PRN (07:57)
[2025-03-24] MEDS: ACETAMINOPHEN 1,000 MG/100 ML VIAL IV PRN (08:34)
[2025-03-24] MEDS: PREGABALIN 25 MG CAP PO SCH (09:17)
[2025-03-24] MEDS: ENOXAPARIN INJ 40 MG/0.4 ML SYR SQ SCH (09:18)
[2025-03-24] MEDS: METOPROLOL SUCC 25MG EXT REL TAB PO SCH (09:18)
[2025-03-24] MEDS: DICLOFENAC SOD 1% GEL 100 GM TUBE EXT SCH (09:19)
[2025-03-24] MEDS: LOTEPREDNOL ETABONATE 5 ML OPH SUSP OP SCH (09:19)
[2025-03-24] MEDS: MULTIVITAMIN TAB PO SCH (09:20)
[2025-03-24] MEDS: TIMOLOL MALEATE 0.5% OP SOLN 5 ML BTL OP SCH (09:20)
[2025-03-24] MEDS: ROSUVASTATIN CALCIUM 10 MG TAB PO SCH (09:22)
--- NOTE | 2025-03-24 10:57 | Hospitalist Progress Note ---
Date of Service March 24, 2025 Assessment & Plan (1) Disseminated malignancy of unknown primary: (2) Cancer related pain: (3) Severe protein-calorie malnutrition: (4) GERD (gastroesophageal reflux disease): (5) Corneal transplant status: Plan 74 yo male with pmhx of Fuchs corneal dystrophy (s/p cornea transplant), BPH, aortic valve insufficiency, GERD, depression, anxiety, bilateral LE varicose veins, HLD, and hx of vtach who presents for right hip and back pain 2/2 likely malignancy of unknown primary and lytic fracture of right hip. #Right Acetabular Fracture, Pathological fracture #Stage IV Malignancy of Unknown Primary CT abd/Pelvis noted several lytic lesions with largest being 5.4x 3.5cm right acetabular lesion, associated with nondisplaced acetabular fracture and adjacent enhancing soft tissue suggestive of tumor extension, distal pareseophageal lymph nodes, 1.2cm left lower lobe pulmonary nodule, subcentimeter hypodense hepatic lesions favor cysts, central hypodensity in right internal iliac vein which could be artefact vs DVT CT venogram did not show any DVT. Hence Right iliac vein DVT ruled out CT chest noted 1.[address] head did not show any lesion or mass PSA is within normal range at 0.987 CEA is 1.6 CA 19-9 still pending Reviewed findings and plans with patient and at bedside Currently NPO awaiting IR bone biopsy Goal is to optimize pain control, then discharge with follow up with Oncology for next steps #Cancer Related Pain Home gabapentin was stopped Continue lyrica started this admission He reports he had dizziness with IV diluadid and will prefer to avoid it. He reports oxycodone is helping so far Continue oxycodone and tylenol prn Can follow up with Palliative outpatient as well for pain management Goal is to optimize pain control prior to discharge and then follow up with Oncology outpatient #Corneal Transplant 2/2 Fuchs Corneal Dystrophy Continue home eye drops #Anxiety #Depression Continue paroxetine #Cachexia #Sarcopenia Reported 15 pound weight loss Follow up dietitian consult I spent a total of 55 minutes coordinating, documenting and providing care for this patient excluding time spent in performance of separately billed services Admission and Anticipated Discharge Date Admission Date: March 23, 2025 Subjective Patient seen and examined Reports low back pain towards the right for the past 3 months but became more severe radiating to right hip and down to right knee in the past month Reports father had bladder cancer and lung cancer in his 80s, mother had colon cancer and sister had bladder cancer He smoked few cigarette sometimes in the past but quit over 30 years ago Denied any respiratory symptoms Reports some weight loss in the past couple of months Physical Exam Constitutional: + well hydrated; no acute distress Eyes: PERRL, conjunctivae normal, anicteric sclerae ENMT: external ear and nose normal, oropharynx normal Respiratory: normal respiratory effort, lungs clear to auscultation Cardiovascular: Rate/Rhythm: regular rate and regular rhythm Gastrointestinal (Abdomen): normal bowel sounds, soft, nontender, no hepatosplenomegaly Musculoskeletal: Tenderness over right hip with limited ROM due to pain Neurologic: PERRL, EOMI, accommodation nl, no face palsy, no dysarthria Psychiatric: A+Ox3, euthymic affect Results & Data Results & Data Vital Signs (Past 12 Hours) Vital Signs Temp Pulse Resp BP Pulse Ox O2 Del Method 03/24/25 09:25 68 146/76 H 03/24/25 07:10 36.8 C 74 16 149/77 H 96 Room Air Laboratory Results Abnormal lab results 03/23/25 03/23/25 03/24/25 Range/Units 12:14 19:09 05:57 RBC 4.09 L (4.70-6.10) M/uL Hgb 12.5 L (14.0-18.0) g/dl Hct 36.9 L (42.0-52.0) % MPV 9.2 L (9.4-12.4) fL D-Dimer 4180 H* (0-500) ug/L FEU BUN/Creatinine Ratio 21.5 H (10-20) Lactate Dehydrogenase 254 H (86-244) U/L
--- NOTE | 2025-03-24 11:16 | Orthopedic Consultation ---
Date of Service March 24, 2025 Assessment & Plan (1) Pathologic acetabular fracture: * Case/imaging reviewed and discussed with Dr Cuellar * Recommend close management of pathologic right acetabulum fracture * Continue oncology workup * Tentative IR bone biopsy today * No urgent surgical intervention indicated, pending oncology workup plan is for outpatient follow-up with orthopedic oncology team at [facility] [place] * Disposition: TBD * Daily treatment: Physical Therapy/ Occupational Therapy per protocol * Weight bearing status: Touchdown weightbearing with walker * Pain control * Remainder care per primary team * Will continue to follow Patient seen and examined, notes plan of first determining nature of lytic lesions through biopsy, and appropriate treatment afterwards. I explained that the nondisplaced fracture involving the right acetabular region does not need immediate operative treatment, will mobilize with toe-touch weightbearing right side, maximum partial weightbearing. (2) Lytic bone lesion of hip: History of Present Illness Reason for Consultation: Right hip pain Requesting Physician: . Attending Physician: Juli Peña MD .Patient is a 74y/o male with right hip pain. PMH including hypercholesterolemia, GERD. Chronic low back pain, sees [facility] pain management, has had injections in the past. Presents to hospital with worsening low back and right hip/groin pain. Patient has been dealing with low back issues for many years, however recently pain in the low back and lateral hip reg ion has increased and is now radiating into his thigh as well as groin region. Eventually pain became so severe he presented to ED for further workup of presumed low back issues. 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 Also noted paraesophageal lymph node suggestive of jayshree metastases, pulmonary nodule. Findings were discussed with on-call orthopedic team yesterday who recommended orthopedic tertiary center, discussions with transfer c enter/Orthopedic oncology team at [facility] [place], recommend protected weightbearing status and continued workup of lesion and would be happy to follow as an outpatient, no urgent surgical intervention indicated at this time. Admitted to hospital medicine team for ongoing oncology workup. Orthopedics consulted for management recommendations. At time of exam patient lying comfortably in bed, no acute distress. Endorses moderate pain of the low back, right hip, right thigh that increases with movement or attempted weightbearing. Denies tingling or numbness of the right lower extremity. Using a walker currently however up until recently has not required assistive devices. Allergies Allergy/AdvReac Type Severity Reaction Status Date / Time naproxen Allergy Intermediate "I get Verified 01/28/25 08:11 numb in my face" Home Medications Medication Instructions Recorded Confirmed Type loteprednol etabonate 0.5 % eye 0 drp ophthalmic (eye) UD 05/28/19 03/23/25 History gel drops multivitamin (Daily Multi-Vitamin 1 tab PO DAILY 05/28/19 03/23/25 History tablet) timolol maleate 0.5 % once daily 0 drp ophthalmic (eye) DAILY 05/28/19 03/23/25 History eye drops coenzyme Q10 30 mg capsule (CoQ-10) 30 mg PO DAILY 12/26/19 03/23/25 History ascorbate calcium (vitamin C) 500 500 mg PO DAILY 04/26/22 03/23/25 History mg tablet azelastine 137 mcg (0.1 %) nasal 2 spray intranasal BID 6 weeks #30 08/26/24 03/23/25 Rx spray mL diclofenac sodium 50 mg 50 mg PO BID 03/23/25 03/23/25 History tablet,delayed release fluticasone propionate 50 0 spray intranasal DAILY PRN 03/23/25 03/23/25 History mcg/actuation nasal Congestion spray,suspension gabapentin 100 mg capsule 100 mg PO BID 03/23/25 03/23/25 History metoprolol succinate 25 mg 25 mg PO BID 03/23/25 03/23/25 History tablet,extended release 24 hr omeprazole 40 mg capsule,delayed 40 mg PO DAILY 03/23/25 03/23/25 History release paroxetine HCl 20 mg tablet 0 mg PO DAILY 03/23/25 03/23/25 History rosuvastatin 10 mg tablet 10 mg PO DAILY 03/23/25 03/23/25 History Past Med/Surg History Problem List (Updated 03/24/25 @ 01:59 by Rios Dempsey MD) Lytic bone lesion of hip (Acute) Pathologic acetabular fracture (Acute) Severe protein-calorie malnutrition Cancer related pain (Acute) 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 Carpal tunnel syndrome, right Ulnar neuropathy at elbow of right upper extremity Rhinitis Hypercholesterolemia (Acute) Detached retina (Acute) Sensorineural hearing loss (SNHL) of both ears Tinnitus of both ears Asymmetrical right sensorineural hearing loss (Acute) Hearing loss (Acute) TMJ (dislocation of temporomandibular joint) (Acute) Pain in left axilla (Acute) Medical History GERD (gastroesophageal reflux disease) Pneumothorax Palpitations Surgical History History of knee surgery History of inguinal hernia repair History of cholecystectomy History of back surgery Family History Mother Diabetes Heart disease Father Heart disease Social History Smoking Status: Former smoker Cigarettes Per Day: up to 1 pack per day; Do You Dip or Chew Tobacco: No; Hx Alcohol Use: Yes Alcohol Intake Frequency Comment: socially/weekends Hx Substance Use: No Preferred Language: Salvadorean Communication Ability: Effective Compatibility Test Engineer Required: No Beliefs That Will Affect Care: None Current Living Situation: Spouse Feels Safe at Home: Yes Assistive Devices: Walker Review of Systems All systems reviewed & are unremarkable except as noted in HPI & below. Physical Exam . * General: Alert and oriented, no acute distress * Constitutional: well-developed, well-nourished. * Respiratory: Normal respiratory effort, no distress * Gastrointestinal: No tenderness to palpation, no rigidity or guarding. * Skin: No rash or lesion. * Neurologic: Grossly normal * Musculoskeletal: Right hip region with no obvious deformity or overlying skin changes. Otherwise no abnormality to RLE noted. Diffuse TTP proximal thigh and hip region, right gluteal region, pubic rami. Otherwise no specific tenderness of distal thigh, lower leg, foot/ankle. Moderate pain with logroll, hip flexion, IR/ER. AROM foot/ankle intact. Sensation intact plantar/dorsal foot. Brisk capillary refill. Results & Data Results & Data Laboratory Results . Diagnostic Findings . Abdomen/Pelvis CT 03/23/25 11:57 CT SCAN OF THE ABDOMEN AND PELVIS WITH IV CONTRAST CLINICAL HISTORY: Right lumbar and right leg pain. COMPARISON STUDY: None. TECHNIQUE: Following the IV administration of 94 cc of Optiray 320, CT scan of the abdomen and pelvis is performed from the lung bases to the proximal femora. Images are reviewed in the axial, sagittal, and coronal planes. IV contrast was administered without complication. A dose lowering technique was utilized adhering to the principles of ALARA. FINDINGS: Emphysema is incidentally noted within the visualized lung bases. There is a 1.2 cm left lower lobe pulmonary nodule on image 23 of 365. There is no pneumatosis, free air or portal venous gas. There are clustered pathologic distal paraesophageal lymph nodes. Index node on image 40 measures 2.3 x 2 cm. No additional sites of lymphadenopathy are identified. Subcentimeter hypodense hepatic lesions favor cysts. There is no biliary ductal dilatation status post cholecystectomy. Adrenal glands, kidneys and pancreas are unremarkable. There is no hydronephrosis. There is extensive colonic diverticulosis without evidence for acute diverticulitis. Bladder wall thickening is accentuated by underdistention. There is no hydronephrosis. Inguinal hernia repairs are incidentally noted. Central hypodensity within the right internal iliac vein on image 245 is present. This may represent mixing artifact. Of note, several lytic skeletal lesions are noted, the largest which is a 5.4 x 3.5 cm right acetabular lesion with associated pathologic fracture and cortical disruption. Adjacent enhancing soft tissue is present. A smaller medial right iliac bone lesion on image 245 measures 3.1 cm. The lumbar spine CT will be reported separately. IMPRESSION: 1. Several lytic skeletal lesions, the largest which is a 5.4 x 3.5 cm right acetabular lesion with associated nondisplaced pathologic acetabular fracture and adjacent enhancing soft tissue suggestive of tumor extension. The findings favor metastatic disease. Myeloma is within the differential but considered less likely. 2. Clustered pathologic distal paraesophageal lymph nodes suggestive of jayshree metastases. A CT of the chest with contrast might be considered for further evaluation. 3. 1.2 cm left lower lobe pulmonary nodule suspicious for a metastasis. The remainder of the lungs can be assessed on the chest CT. 4. Central hypodensity within the right internal iliac vein. This favors mixing artifact however deep venous thrombus could appear similar. This could be assessed with a CT venogram. ACT 112: Negative or not required by law. Electronically signed by: Tyrone Mckeon M.D. 03/23/2025 2:[address] 03/23/25 11:57 CT SCAN OF THE LUMBAR SPINE WITH IV CONTRAST CLINICAL HISTORY: Low back pain. Leg pain. COMPARISON STUDY: No priors. TECHNIQUE: Following the IV administration of 94 cc of Optiray 320, CT scan of the lumbar spine is performed from the lower thoracic spine to the sacrum. Images are reviewed in the axial, sagittal, and coronal planes. IV contrast was administered without complication. A dose lowering technique was utilized adhering to the principles of ALARA. CT DOSE: 918.97 mGy.cm FINDINGS: The skeletal structures are heterogeneously osteopenic. There is no evidence of fracture or malalignment involving the lumbar spine. Vertebral body height and alignment are maintained throughout the lumbar spine. The transverse and spinous processes appear intact. There is no spondylolysis. Anterior and lateral marginal osteophytes are seen throughout. There is moderate to severe disc space narrowing at L3-L4, L4-L5, and L5-S1. Posterior disc osteophyte complexes are seen at all lumbar levels. There is no CT evidence of large disc herniation or high-grade central canal stenosis. There is a left lateral disc extrusion at L5-S1 seen on axial image #335. This causes severe neural foraminal stenosis with impingement on the exiting left L5 nerve root. Mild facet arthropathy is noted in the lower lumbar region. Imaged portions of the sacrum and bony pelvis appear intact. A 3 cm osteolytic metastasis in the right iliac bone is seen on image #410. There may be an additional osteolytic lesion in the body of L5 seen on sagittal image #37. No additional destructive bony lesions are clearly seen in the lumbar spine. A Schmorl's node is noted in the superior endplate of L2. The paraspinous soft tissues are within normal limits. Emphysematous change is noted at the lung bases. There is a fat-containing Bochdalek hernia on the left. There is moderate to advanced atherosclerotic calcification and ectasia of the abdominal aorta. No retroperitoneal lymphadenopathy is seen. There are pathologically enlarged lymph nodes just below the gastroesophageal junction, with the largest is seen on image #29 measuring 2.5 x 1.9 cm. IMPRESSION: 1. No acute bony abnormality seen involving the lumbar spine. 2. 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 There may be an additional osteolytic lesion in the body of L5. Additionally, there are pathologically enlarged lymph nodes just below the gastroesophageal junction. These findings are neoplastic in etiology. Correlate for any oncological history. 3. Osteopenia and degenerative change as above. 4. Emphysema. ACT 112: Positive. There are findings on this exam that require communication between the performing entity and the patient following Patient Test Result Information Act ([place] Act 112) guidelines. Electronically signed by: Jemal Guillermo M.D. 03/23/2025 2:42 PM Chest X-Ray 03/23/25 12:04 XR chest 1V portable CLINICAL HISTORY: Chest pain. COMPARISON STUDY: Chest CT and chest radiograph September 02, 2022. FINDINGS: Lung volumes are normal. There is no consolidation to suggest pneumonia. Subpleural right apical density is unchanged and favors scarring. There is no pneumothorax or pleural effusion. Cardiac size is normal. Mediastinal contours are normal. There is no evidence for pulmonary edema. IMPRESSION: No acute cardiopulmonary findings. No change in appearance of the chest. ACT 112: Negative or not required by law. Electronically signed by: Tyrone Mckeon M.D. 03/23/2025 12:[address] 03/23/25 21:05 Exam(s): CT HEAD With Contrast IV Amt: 115 ml optiray 320 EXAM: CT Head With Intravenous Contrast CLINICAL HISTORY: Reason for exam: r/o brain mets. TECHNIQUE: Axial computed tomography images of the head/brain with intravenous contrast. CTDI is 36.43 mGy and DLP is 702.46 mGy-cm. Automated exposure control was utilized for the study. A dose lowering technique was utilized adhering to the principles of ALARA. CONTRAST: Patient received 115 ml optiray 320 of IV contrast COMPARISON: No relevant prior studies available. FINDINGS: Brain: No enhancing lesion or mass identified. No hemorrhage. Ventricles: Unremarkable. Bones/joints: Unremarkable. No fracture. Soft tissues: Unremarkable. Sinuses: No acute sinusitis. Mastoid air cells: Unremarkable as visualized. IMPRESSION: No enhancing lesion or mass identified. Electronically signed by: Chase Jamil MD 03/23/25 22:48 PM Chest CTA 03/23/25 21:13 Exam(s): CTA CHEST IV Amt: 115 ml optiray 320 EXAM: CT Angiography Chest With Intravenous Contrast CLINICAL HISTORY: Reason for exam: PE. TECHNIQUE: Axial computed tomographic angiography images of the chest with intravenous contrast. CTDI is 101.36 mGy and DLP is 3088.24 mGy-cm. Automated exposure control was utilized for the study. A dose lowering technique was utilized adhering to the principles of ALARA. MIP reconstructed images were created and reviewed. COMPARISON: No relevant prior studies available. FINDINGS: Pulmonary arteries: No pulmonary embolism. Aorta: No acute findings. Normal caliber. No dissection. Lungs: Pulmonary nodule in the left lower lobe measuring 1.2 cm. Pleural space: No pleural effusion. No pneumothorax. Heart: Unremarkable. Bones/joints: No acute fracture. Soft tissues: Unremarkable. Lymph nodes: Unremarkable. IMPRESSION: 1. No pulmonary embolism. 2. Pulmonary nodule in the left lower lobe measuring 1.2 cm. Electronically signed by: Chase Jamil MD 03/23/25 23:03 PM Bladder Ultrasound 03/23/25 21:24 Exam(s): US BLADDER EXAM: US Bladder CLINICAL HISTORY: Reason for exam: look for bladder mass. TECHNIQUE: Real-time ultrasound of the bladder with image documentation. COMPARISON: No relevant prior studies available. FINDINGS: Trabeculated bladder without nodular thickening. IMPRESSION: Trabeculated bladder without nodular thickening. Electronically signed by: Chase Jamil MD 03/23/25 23:[address] 03/23/25 21:28 Exam(s): CT ABDOMEN + PELVIS With Contrast IV Amt: 115 ml optiray 320 EXAM: CT Abdomen and Pelvis With Intravenous Contrast CLINICAL HISTORY: Reason for exam: concern for right iliac vein thrombosis. TECHNIQUE: Axial computed tomography images of the abdomen and pelvis with intravenous contrast. CTDI is 101.36 mGy and DLP is 3088.24 mGy-cm. Automated exposure control was utilized for the study. A dose lowering technique was utilized adhering to the principles of ALARA. CONTRAST: Patient received 115 ml optiray 320 of IV contrast COMPARISON: No relevant prior studies available. FINDINGS: ABDOMEN: Liver: A few scattered subcentimeter low-attenuation lesions in the liver which are incompletely characterized. Gallbladder and bile ducts: Cholecystectomy. Pancreas: Unremarkable. Spleen: Unremarkable. Adrenals: Unremarkable. Kidneys and ureters: Unremarkable. No obstructing stones. No hydronephrosis. Stomach and bowel: Colonic diverticulosis without acute diverticulitis. PELVIS: Appendix: No findings to suggest acute appendicitis. Bladder: Trabeculated bladder. Reproductive: Unremarkable as visualized. ABDOMEN and PELVIS: Intraperitoneal space: Unremarkable. No free air. No significant fluid collection. Bones/joints: Lytic lesion in the right acetabulum measuring 6 cm with a nondisplaced pathologic right superior acetabular fracture. Moderate to severe degenerative changes in the lumbar spine. Soft tissues: Unremarkable. Vasculature: No evidence of DVT.. Lymph nodes: Unremarkable. IMPRESSION: 1. No evidence of DVT. 2. Lytic lesion in the right acetabulum measuring 6 cm with a nondisplaced pathologic right superior acetabular fracture. 3. A few scattered subcentimeter low-attenuation lesions in the liver which are incompletely characterized. Electronically signed by: Chase Jamil MD 03/23/25 23:08 PM PG Care Time/CCT Total # of Minutes Spent Total Time Spent with Patient: Total time spent is greater than 50% in coordination of care (as documented) at patient's floor/unit and/or counseling patient: [place] [address] IN/OBS CONSULT LVL 5,80M Patient Type New Medical Decision Making High Complexity Diagnoses Pathologic acetabular fracture M84.454A Encounter type: initial encounter Laterality: right Lytic bone lesion of hip M89.8X5 (1) Pathologic acetabular fracture Encounter type: initial encounter Laterality: right Qualified Code(s): M84.454A - Pathological fracture, pelvis, initial encounter for fracture
[2025-03-24] MEDS: MoRPHine SULFATE 2 MG/ML CARP ONE (12:23)
--- NOTE | 2025-03-24 13:31 | CT Scan Report ---
CT guided right iliac bone lesion core biopsy INDICATION: Right iliac bone lesion PROCEDURE: Procedure and risks were explained. Informed consent was obtained. A final timeout was com pleted. The patient was placed in a left decubitus position on the CT exam table. The right hip was p repped and draped in sterile fashion. 1% lidocaine was utilized for skin anesthesia. The patient rece ived 2 mg morphine IV. Utilizing CT guidance, an 11-gauge bone biopsy needle was advanced into the right iliac bone lesion. An 18-gauge core biopsy needle was advanced, and 4 soft tissue cores were obtained. An additional 11- gauge bone core was obtained and given to the lab. The needle was removed and Band-Aid applied. The p atient tolerated the procedure well. Vital signs will be monitored postprocedure. IMPRESSION: Right iliac bone lesion core biopsy as above. Performed, dictated, and signed by Beto Tilley PA-C; to be co-signed by Dr. Tyrone Mckeon. Electronically signed by: Tyrone Mckeon M.D. 03/24/2025 3:25 PM
[2025-03-24] MEDS: ACETAMINOPHEN 325 MG TAB PO PRN (14:09)
[2025-03-25] MEDS: MoRPHine SULFATE 2 MG/ML CARP IV PRN (03:55)
[2025-03-25 06:31] LABS: Hematocrit (blood only) 34.4 % (42.0-52.0); Hemoglobin 11.8 g/dl (14.0-18.0); Mean Corpuscular Hemoglobin 30.9 pg (25.0-34.0); Mean Corpuscular Volume 90.1 fL (80.0-100.0); Platelet Count 223 K/uL (130-400); RDW Standard Deviation 40.8 fL (36.4-46.3); Red Blood Count 3.82 M/uL (4.70-6.10); White Blood Count 8.20 K/ul (4.8-10.8)
[2025-03-25 06:48] LABS: Appearance Urine Clear (Clear); Bacteria Urine Automated None Seen (None Seen); Cast Urine Automated 0-2 /lpf (0-2); Epithelial Cell Urine Auto 0-2 /hpf (0-2); Glucose Urine UA Negative (Negative); WBC Urine Automated 0-5 /hpf (0-5)
[2025-03-25 07:01] LABS: Anion Gap 7.0 (3-11); Blood Urea Nitrogen 20.0 mg/dl (6-23); Calcium 9.0 mg/dl (8.6-10.3); Carbon Dioxide 29.0 mmol/L (21-32); Chloride 100.0 mmol/L (98-107); Creatinine Clr Calc Pharmacy 71.2 ml/min; Glucose 97.0 mg/dl (70-99(Fasting)); Potassium 4.1 mmol/L (3.5-5.1); Sodium 136.0 mmol/L (136-145)
[2025-03-25] MEDS: ACETAMINOPHEN 500 MG TAB PO SCH (10:23)
[2025-03-25] MEDS: SENNA 8.6 MG TAB PO SCH (10:23)
--- NOTE | 2025-03-25 13:09 | Hospitalist Progress Note ---
Date of Service March 25, 2025 Assessment & Plan (1) Disseminated malignancy of unknown primary: (2) Cancer related pain: (3) Severe protein-calorie malnutrition: (4) GERD (gastroesophageal reflux disease): (5) Corneal transplant status: (6) Pathologic acetabular fracture: (7) Lytic bone lesion of hip: Plan Patient with multiple lytic lesions of the bone concerning for metastatic malignancy of unknown primary. Status post biopsy of his right iliac bone on 03/24/2025. Patient's pain is still uncontrolled limiting his ability to care for himself at home Discussed with him that we need to try to get a plan of oral medications to control his pain discussed long-acting OxyContin. Will schedule Tylenol as well. Will increase his oral Oxy IR dosing. Will discontinue any IV pain medications Continue to do therapies as able Outpatient follow-up with oncology after pathology resulted. Bowel regimen at bedside updated plan of care as well 52 minutes spent on communication and coordination of plan of care with patient and at bedside, review of EMR, coordinating care Admission and Anticipated Discharge Date Admission Date: March 23, 2025 Subjective Patient very concerned about his worsening pain after his biopsy. Does not feel as though it is controlled enough that he would even be able to manage at home. Physical Exam Physical Exam: Constitutional: Alert, sitting in chair, moderate distress due to pain HEENT: Mucous membranes moist. Lungs: Clear to auscultation, decreased, no wheezes rales or rhonchi CV: S1-S2, regular Extremities: No significant edema Neuro: No focal deficits Psych: Cooperative, anxious Results & Data Results & Data Vital Signs (Past 12 Hours) Vital Signs Temp Pulse Pulse Resp BP Pulse Ox O2 Del Method 03/25/25 11:29 36.6 C 80 18 90/55 L 96 Room Air 03/25/25 08:36 85 112/67 93 Room Air 03/25/25 08:00 Room Air 03/25/25 07:32 36.8 C 91 H 18 121/73 94 Room Air Diagnostic Findings Reviewed imaging, laboratory and diagnostic studies. Pertinent findings as below. CBC/BMP stable (6) Pathologic acetabular fracture Encounter type: initial encounter Laterality: right Qualified Code(s): M84.454A - Pathological fracture, pelvis, initial encounter for fracture
[2025-03-25] MEDS: PREGABALIN 50 MG CAP PO SCH (14:09)
[2025-03-26 07:40] VITALS: BP 114/65; PULSE 83; RESP 20; TEMP 98.4; O2SAT 96
[2025-03-26] MEDS: POLYETHYLENE (MIRALAX) 17 GM PACK PO SCH (08:10)
--- NOTE | 2025-03-26 10:38 | CT Scan Report ---
RIGHT HIP CT WITHOUT CONTRAST CLINICAL HISTORY: Acetabular fracture, increased pain. COMPARISON STUDY: CT of the abdomen and pelvis March 23, 2025. TECHNIQUE: Axial images of the right hip were obtained without IV contrast. Sagittal and coronal refo rmats were viewed. A dose lowering technique was utilized adhering to the principles of ALARA. FINDINGS: A destructive lytic right acetabular lesion measuring 5.7 cm is unchanged since CT of [place] 2024. An associated comminuted nondisplaced pathologic fracture of the roof and posterior wall o f the right acetabulum is unchanged. Adjacent soft tissue consistent with tumor extension is better d epicted on prior contrast enhanced CT. An additional 3.1 cm lytic lesion within the medial right sulma c bone on image 11 of 345 is unchanged. Postoperative findings within the right groin are incidentall y noted. No lesions within the proximal right femur are identified by CT. There is no proximal right femoral fracture. There is mild joint space narrowing and moderate osteophytosis of the right hip. IMPRESSION: 1. No change in appearance of a 5.7 cm right acetabular lytic lesion, associated comminuted nondispla william pathologic acetabular fracture and suspected soft tissue extension of tumor since prior CT. 2. Redemonstration of an additional 3 x 1 cm lytic lesion within the medial right iliac bone. ACT 112: Negative or not required by law. Electronically signed by: Tyrone Mckeon M.D. 03/26/2025 10:37 AM
--- NOTE | 2025-03-26 13:56 | Discharge Summary ---
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 In the emergency room imaging was concerning for osseous metastatic disease of unknown primary. There is also noted to be a nondisplaced acetabular fracture. In the emergency department discussion was held with [facility] orthopedic group who felt that there was no need for immediate transfer in the setting of pathologic fracture and could weight-bear as tolerated. Patient was admitted to the hospital for pain control. Orthopedic consultation was obtained. They help coordinate interventional radiology biopsy of the bone lesion. Patient's pain was fairly difficult to control. He was started on long-acting extended release narcotics, short acting narcotics Lyrica and scheduled Tylenol. With these interventions his pain was manageable. He was seen by therapies and he could ambulate using a walker. Patient had a repeat CT of the hip on the day of discharge. There was no change in the fracture there was no displacement. Other findings were similar to previous CT. Patient will follow up with his PCP. PCP will help coordinate outpatient oncology follow-up once pathology is resulted from the bone biopsy to coordinate any type of treatment plan for presumed metastatic disease. Is is at the bedside at time of discharge, she is updated the plan of care and agreeable to the plan. Notes For Next Care Provider Patient will need outpatient follow-up with oncology to develop a plan once pathology is known Patient may need referral to [facility] oncological orthopedic team if patient would have additional fractures or worsening of the current fracture. Medication Changes From Visit OxyContin for extended pain relief Oxycodone for immediate pain relief Lyrica for pain relief Gabapentin discontinued Tylenol scheduled for pain relief MiraLAX and senna for bowel regimen Admission HPI Per Admitting Provider 74 yo male with pmhx of Fuchs corneal dystrophy (s/p cornea transplant), BPH, aortic valve insufficiency, GERD, depression, anxiety, bilateral LE varicose veins, HLD, and hx of vtach who presents for right hip and back pain. He has no recent admissions at this institution. In the ED, noted to have metastatic disease of unknown primary in back, lungs, right hip, right hip fracture, per ED ortho did not recommend transfer, admit to medicine for further workup. Patient seen and examined at bedside. present as well. We discussed his imaging findings at length, including likely diagnosis of stage IV malignancy of unknown primary. Discussed next steps, including imaging and lab work. They were appreciative of the update. Patient has been having severe pain in back and right hip for past 4 weeks. Pain has been worsening. Was able to mow lawn 3 weeks ago, now not being able to do many activities of daily living. Describes pain as sharp pain with movement with radiating component down right leg and into groin. Has constant low back pain as well. Has had more trouble urinating over past few weeks. Denies nausea, vomiting, diarrhea, SOB, headache, other associated symptoms. Denies tobacco use, social alcohol use, no drug use, DNRDNI, discussed at length with patient and . 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 Admission Exam Per Admitting Provider See H&P Discharge Exam Constitutional: Alert, underweight HEENT: Mucous membranes moist. Lungs: Clear to auscultation, decreased, no wheezes rales or rhonchi CV: S1-S2, regular Extremities: No significant edema Neuro: Generalized weakness lower extremities due to pain Psych: Cooperative, normal mood Updated Medication List Medication Instructions Recorded Confirmed Type loteprednol etabonate 0.5 % eye 0 drp ophthalmic (eye) UD 05/28/19 03/23/25 History gel drops multivitamin (Daily Multi-Vitamin 1 tab PO DAILY 05/28/19 03/23/25 History tablet) timolol maleate 0.5 % once daily 0 drp ophthalmic (eye) DAILY 05/28/19 03/23/25 History eye drops coenzyme Q10 30 mg capsule (CoQ-10) 30 mg PO DAILY 12/26/19 03/23/25 History ascorbate calcium (vitamin C) 500 500 mg PO DAILY 04/26/22 03/23/25 History mg tablet azelastine 137 mcg (0.1 %) nasal 2 spray intranasal BID 6 weeks #30 08/26/24 03/23/25 Rx spray mL diclofenac sodium 50 mg 50 mg PO BID 03/23/25 03/23/25 History tablet,delayed release fluticasone propionate 50 0 spray intranasal DAILY PRN 03/23/25 03/23/25 History mcg/actuation nasal Congestion spray,suspension gabapentin 100 mg capsule 100 mg PO BID 03/23/25 03/23/25 History metoprolol succinate 25 mg 25 mg PO BID 03/23/25 03/23/25 History tablet,extended release 24 hr omeprazole 40 mg capsule,delayed 40 mg PO DAILY 03/23/25 03/23/25 History release paroxetine HCl 20 mg tablet 0 mg PO DAILY 03/23/25 03/23/25 History rosuvastatin 10 mg tablet 10 mg PO DAILY 03/23/25 03/23/25 History acetaminophen 500 mg tablet 1,000 mg (2 x 500 mg) PO TID #300 03/26/25 Rx (Tylenol Extra Strength) tabs oxycodone 15 mg tablet,crush 15 mg PO Q12H #60 tabs 03/26/25 Rx resistant,extended release 12 hr (OxyContin) oxycodone 5 mg tablet 5 - 10 mg (1 - 2 x 5 mg) PO Q4H 03/26/25 Rx PRN pain #20 tabs polyethylene glycol 3350 17 gram 17 g PO DAILY #3 ea 03/26/25 Rx oral powder packet (Miralax) pregabalin 50 mg capsule (Lyrica) 50 mg PO TID #90 caps 03/26/25 Rx sennosides 8.6 mg tablet (Senna 8.6 mg PO BID #60 tabs 03/26/25 Rx Lax) Hospital Stay Data Consultations 03/23/25 18:50 ED Decision to Admit Stat 03/23/25 21:26 Consult Orthopedic Surgery Routine Diagnostic Imagining Performed 03/23/25 11:57 CT abd pelvis IV con only Stat CT lumbar spine w con Stat 03/23/25 21:05 CT head/brain w con Urgent 03/23/25 21:13 CT angio chest PE protocol Urgent 03/23/25 21:24 US Bladder and Retroperitoneal [US retro bladder ltd] Urgent 03/23/25 21:25 IR biopsy bone superficial CT Urgent 03/23/25 21:28 CT abdomen pelvis veno w con Urgent 03/26/25 09:37 CT hip RT wo con Urgent Reviewed imaging, laboratory and diagnostic studies. Pertinent findings as below. WBCs 8.2 Hemoglobin 11.8 Platelets of 223 Electrolytes within normal range Creatinine 0.98 CEA 1.6, normal range CA 199 10, normal range PSA 0.98, normal range TSH 2.1 CT of the right hip done on 03/26/2025 showed no significant changes in lytic lesions, no change in nondisplaced pathological acetabular fracture CT venogram was negative for DVT, subcentimeter lesions of the liver could not be characterized Bone biopsy performed on right iliac bone lesion Bladder ultrasound showed trabeculated bladder without any thickening CTA of the chest negative for PE there is a 1.2 cm pulmonary nodule in the left lower lobe Head CT no lesions or masses noted CT of the abdomen pelvis showed several lytic lesions in the pelvis, distal paraesophageal lymph nodes, lumbar spine CT again showed lytic lesions, no bony abnormalities of the lumbar spine Pending Results Patient Have Any Pending Studies at Discharge: Yes Discharge Instructions Given to Patient (Per Discharging Provider) Your pathology from your bone biopsy is still pending. Can follow-up results with PCP and/or oncology We are working on setting up a oncology appointment for you within the next 7 to 10 days. If you do not hear from them by Sunday please call your PCP Home Health Attestation I certify that this patient is under my care and that I, or a physicians fws faculty assistant working with me, had a face to-face encounter that meets the home health [id number] encounter requirements with this patient. The encounter with the patient was in whole, or in part, for the following medical condition, which is the primary reason for home health care (list medical condition): I certify that, based on my findings, the following services are medically necessary home health services: My clinical findings support the need for the above services because: Further, I certify that my clinical findings support that this patient is homebound (i.e. absences from home require considerable and taxing effort and are for medical reasons or synagogue services or infrequently or of short duration when for other reasons) because: Certification for Home Health Services: Based on the above findings, I certify that this patient is confined to the home and needs intermittent chcf care, physical therapy and/or speech therapy or continues to need occupational therapy. The patient is under my care, and I have initiated the establishment of the plan of care. This patient will be followed by a physician who will periodically review the plan of care. Total Time Total Time Spent Total Time Spent (In Minutes): 53
--- NOTE | 2025-03-29 06:10 | Coding Query ---
PATHOLOGY To promote full compliance with coding requirements relating to patient care, physician participation is requested in all cases of detective private eye uncertainty. Please assist us with the question(s) below: Please review the Pathology report and please document any relevant diagnosis(es) below: Diagnosis(es): Plasma cell neoplasm Thank you ISAURA Aldridge [facility]
--- NOTE | 2025-03-31 09:29 | Communication Note ---
Called patient and at number listed in chart to discuss biopsy results. states they have appointment on to discuss biopsy results and would like to defer hearing about biopsy results until then. They were appreciative of the update. Date of Service: March 31, 2025
== END 2025-03-26 15:16 | disposition home health service (06) | DRG 477 ==
LOC: ED 11:02 → SUATTDRO 21:04 → 3N 21:04

== ENCOUNTER 2025-05-11 15:05 | Inpatient (IN) ==
[2025-05-11 15:44] LABS: Hematocrit (blood only) 32.3 % (42.0-52.0); Hemoglobin 10.6 g/dl (14.0-18.0); Mean Corpuscular Hemoglobin 28.9 pg (25.0-34.0); Mean Corpuscular Volume 88.0 fL (80.0-100.0); Platelet Count 238 K/uL (130-400); RDW Standard Deviation 42.4 fL (36.4-46.3); Red Blood Count 3.67 M/uL (4.70-6.10); White Blood Count 34.53 K/ul (4.8-10.8)
[2025-05-11 15:57] LABS: Alanine Aminotransferase 41.0 U/L (7-52); Albumin Globulin Ratio 1.0 (0.9-2); Albumin Level 2.8 gm/dl (3.4-5.0); Alkaline Phosphatase 126.0 U/L (34-104); Anion Gap 10.0 (3-11); Bilirubin,Total 0.8 mg/dl (0.2-1.0); Blood Urea Nitrogen 66.0 mg/dl (6-23); Calcium 8.8 mg/dl (8.6-10.3); Carbon Dioxide 23.0 mmol/L (21-32); Chloride 92.0 mmol/L (98-107); Creatinine Clr Calc Pharmacy 52.5 ml/min; Globulin 2.7 gm/dl (2.5-4.0); Glucose 134.0 mg/dl (70-99(Fasting)); Magnesium 2.0 mg/dl (1.7-2.4); Potassium 4.9 mmol/L (3.5-5.1); Sodium 125.0 mmol/L (136-145); Total Protein 5.5 gm/dl (6.0-8.3)
--- NOTE | 2025-05-11 15:57 | Emergency Department Note ---
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 Patient is accompanied by EMS who provide additional history. EMS reports cancer related to his hip. They state that he has had struggles with ambulation as well as ADLs. Has noted to be weak and short of breath. They report that he was hemodynamically stable and route. IV access was not obtained. Patient's called EMS. They have been following up with oncology as well as palliative care. reports that he has had trouble urinating. They also report dark urine and decreased output. He notes significant shortness of breath and pain. They have been utilizing a fentanyl patch as well as Dilaudid and steroids at home. He was lethargic and more confused over the past day or so. They removed the fentanyl patch thinking that this could be the cause. reports that his color is pale. She is concerned that he could possibly be acutely anemic. They deny fever or chills. No cough or congestion. Denies chest pain or palpitations. They deny abdominal pain, nausea and vomiting. No recent changes in bowel movements. Patient denies recent changes in medications or OTC supplements. Patient offers no other complaints, today. ADDITIONAL HISTORY OBTAINED: Per HPI Chronic Medical/Social Conditions Affecting Care: Per HPI PAST MEDICAL HISTORY: See Below PAST SURGICAL HISTORY: See Below FAMILY HISTORY: See Below SOCIAL HISTORY: See Below HOME MEDICATIONS: See Below ALLERGIES: See Below VITALS: See Below PHYSICAL EXAMINATION: GENERAL: Sitting up in bed, alert, ill appearing, well nourished, distress 2/2 pain, non-toxic EYE EXAM: normal conjunctiva. OD 2mm OS 6mm OROPHARYNX: no exudate, no erythema, lips, buccal mucosa, and tongue normal and mucous membranes are moist NECK: supple, no nuchal rigidity, no adenopathy, non-tender LUNGS: Rhonchi. Normal chest wall mechanics HEART: no murmurs, regular rate, regular rhythm ABDOMEN: abdomen soft, non-tender, no masses, no rebound or guarding. BACK: Back is symmetrical on inspection and there is no deformity, no midline tenderness, no CVA tenderness. SKIN: no rashes and no bruising UPPER EXTREMITIES: upper extremities are grossly normal. LOWER EXTREMITIES: Edema bilateral NEURO EXAM: Normal sensorium, GCS 15, normal speech, generally weak. MEDICAL DECISION MAKING: Differential diagnoses includes but not limited to failure to thrive, ambulatory dysfunction, electrolyte derangements, acute dehydration, GI bleed, pulmonary embolism, pneumonia, bacteremia, complicated UTI, viral URI, metastatic cancer In summary, this is a 74 year old male who presented with failure to thrive accompanied by shortness of breath and urinary difficulties. Differential as above. Nursing notes and pertinent past medical records reviewed. Vital signs reviewed and the patient is afebrile and hemodynamically stable. History and presentation revealed metastatic cancer on palliative care with home pain medications and palliative radiation. Physical examination revealed as above. As a result of my initial evaluation, we will plan for labs as well as CT PE for further evaluation of possible pulmonary embolism. I did offer the patient pain control medications but he would like to hold off now as his pain has been somewhat controlled. Told him with a CAT scan that he would have to be moving and lying flat. He would likely have significant difficulty with this. As needed pain medications ordered as well as IV Tylenol. Diagnostics interpreted by me include EKG and cardiac monitoring as listed below: -Cardiac Monitoring: An order was placed for continuous cardiac monitoring. The monitor shows a rate of 80-90s with regular rhythm. -ECG: Appears to be normal sinus rhythm at a ventricular rate of 87 bpm. Very poor baseline on this EKG. No significant ST segment changes to suggest STEMI. Patient completed laboratory studies and imaging. Results independently interpreted by me are significant leukocytosis from the patient's baseline. The patient is been on dexamethasone for the last week to 2 weeks. Could be related to this but do feel this is significantly elevated. We will plan for infectious workup as the patient meets SIRS criteria with heart rate in the 90s as well as a leukocytosis. There are concerns for urinary symptoms. Patient has had difficulty voiding. Movement would cause significant distress to the patient. I do recommend urethral catheter placement and he was agreeable to this. Plan to collect inflammatory markers as well. Patient is acutely hyponatremic. Increased BUN to creatinine ratio. Do feel this is likely due to poor p.o. intake. Suggest mildly dehydrated. Will collect serum osmolality as well as urine osmolality and sodium. Patient will need further evaluation of this. IV fluid resuscitation with crystalloid bolus is ongoing. The patient was managed with crystalloid resuscitation and broad-spectrum antibiotics. I had an extensive discussion with the patient and his . I have reviewed the patient's chest x-ray which appears to be severe metastatic disease in all lung vanegas. I discussed with him that I do not believe CT PE study would currently pipe changer. I do believe that this study would cause the patient's significant distress and pain. Patient is proceeding with palliative care and would like to arrange home hospice. The patient is comfortable with continued analgesia, IV antibiotics and fluid resuscitation. We also discussed CODE STATUS as well as advanced cardiorespiratory support. The patient would like to focus on his comfort. Patient is to remain a DNR/DNI. Instead of oxygenation support, the patient would like to focus on comfort and treating air hunger, if this should become an issue. Ultimately, the decision was made to admit the patient for metastatic chondrosarcoma with acute dehydration and sepsis as well as numerous electrolyte derangements. It was recommended to admit this patient at 1650. I discussed the case with the hospitalist service via telephone/Tiger[employer] and they are agreeable to admit the patient to their services at 1707. Based on the above, including the patient's age, coexisting illnesses, labs, imaging, and exam findings the decision to treat as an inpatient. I discussed the patient with the hospitalist team who recommended admission to their services. They received the medications, treatments, interventions indicated above and their condition remained stable. I discussed my findings with the patient and their family and they understand and agree with the treatment plan. All patient / family questions were answered to their satisfaction. Consults/Care Managements Discussions: Per MDM ER treatment provided: See above Procedures: none Critical Care: None The chart was completed utilizing [employer] voice recognition software. Grammatical errors, random word insertions, pronoun errors, and incomplete sentences are an occasional consequence of this system due to software limitations, ambient noise, and hardware issues. Any formal questions or concerns about the content, text, or information contained within the body of this dictation should be directly addressed to the physician for clarification. Past Med/Surg History Problem List (Updated 05/11/25 @ 17:02 by Julio Houston DO) Candidiasis of mouth (Acute) Acute hyponatremia (Acute) Acute dehydration (Acute) Acute encephalopathy (Acute) Metastatic cancer (Acute) Sepsis (Acute) Adult failure to thrive (Acute) Chondrosarcoma (Chronic) Mass of left lung Lytic bone lesion of hip (Acute) Pathologic acetabular fracture (Acute) Severe protein-calorie malnutrition Cancer related pain (Acute) 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 Carpal tunnel syndrome, right Ulnar neuropathy at elbow of right upper extremity Rhinitis Hypercholesterolemia (Acute) Sensorineural hearing loss (SNHL) of both ears Tinnitus of both ears Asymmetrical right sensorineural hearing loss (Acute) Hearing loss (Acute) TMJ (dislocation of temporomandibular joint) (Acute) Pain in left axilla (Acute) Medical History (Updated 05/11/25 @ 17:02 by Julio Houston DO) Wide QRS complex present on electrocardiography SVT (supraventricular tachycardia) 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 Spontaneous pneumothorax Skull fracture Plate placed Detached retina Microhematuria Depression HTN (hypertension) BCC (basal cell carcinoma of skin) Coronary arteriosclerosis Dyslipidemia BPH (benign prostatic hyperplasia) DJD (degenerative joint disease) GERD (gastroesophageal reflux disease) Pneumothorax Palpitations Surgical History (Updated 05/01/25 @ 09:35 by Yadira Chandler, LASHAY) History of cataract surgery Bilateral History of carpal tunnel surgery of right wrist H/O arthroscopy of knee H/O esophagogastroduodenoscopy History of surgery Corneal transplant - left S/P colonoscopy History of bone marrow biopsy History of knee surgery History of inguinal hernia repair History of cholecystectomy History of back surgery X2 Family History (Updated 05/01/25 @ 09:37 by Yadira Chandler, LASHAY) Mother , 91yo Diabetes Myocardial infarction History of cardioversion Colorectal cancer Hypertension Father , 91yo Myocardial infarction Bladder cancer Sister Bladder cancer Son No problems noted. Daughter No problems noted. Social History (Updated 05/01/25 @ 09:38 by Yadira Chandler, RN) Smoking Status: Former smoker Tobacco Type: Cigarettes Cigarettes Per Day: up to 1 pack per day; Do You Dip or Chew Tobacco: No; Hx Alcohol Use: Yes Alcohol Intake Frequency Comment: socially/weekends Hx Substance Use: No Preferred Language: Slovak Communication Ability: Effective Visual Impairment: No Limitations Hearing Ability: Normal Timber Framer Required: No Beliefs That Will Affect Care: None marital status: Current Living Situation: Spouse current occupational status: retired current occupation: Psychologist; How many Children do You have: 2 Feels Safe at Home: Yes Diet: regular during the past year weight has: decreased > 10 lbs Assistive Devices: Glasses Allergies Allergies Allergy/AdvReac Type Severity Reaction Status Date / Time naproxen Allergy Intermediate "I get Verified 05/01/25 09:28 numb in my face" Bee stings Allergy Severe Swelling Uncoded 05/01/25 09:29 Home Meds Home Medications Medication Instructions Recorded Confirmed loteprednol etabonate 0.5 % eye 0 drp ophthalmic (eye) UD 05/28/19 05/01/25 gel drops multivitamin (Daily Multi-Vitamin 1 tab PO DAILY 05/28/19 05/01/25 tablet) timolol maleate 0.5 % once daily 0 drp ophthalmic (eye) DAILY 05/28/19 05/01/25 eye drops coenzyme Q10 30 mg capsule (CoQ-10) 30 mg PO DAILY 12/26/19 05/01/25 ascorbate calcium (vitamin C) 500 500 mg PO DAILY 04/26/22 05/01/25 mg tablet metoprolol succinate 25 mg 25 mg PO BID 03/23/25 05/01/25 tablet,extended release 24 hr omeprazole 40 mg capsule,delayed 40 mg PO DAILY 03/23/25 05/01/25 release rosuvastatin 10 mg tablet 10 mg PO DAILY 03/23/25 05/01/25 dexamethasone 4 mg tablet 4 mg PO BID 05/01/25 05/01/25 gabapentin 100 mg capsule 400 mg PO BID 05/01/25 hydromorphone 4 mg tablet 4 mg PO Q3H PRN 05/01/25 05/01/25 (Dilaudid) morphine 15 mg tablet,extended 15 mg PO TID 05/01/25 release (MS Contin) naloxegol 25 mg tablet (Movantik) 25 mg PO QAM 05/01/25 05/01/25 polyethylene glycol 3350 17 gram 17 g PO BID 05/01/25 oral powder packet (Miralax) sennosides 8.6 mg tablet (Senna 8.6 mg PO BID PRN 05/01/25 Lax) Previous Rx's Medication Instructions Recorded acetaminophen 500 mg tablet 1,000 mg (2 x 500 mg) PO TID #300 03/26/25 (Tylenol Extra Strength) tabs Results & Data (ED) Vital Signs Vital Signs - 24 hr 05/11/25 15:12 05/11/25 15:18 05/11/25 16:00 Temperature 36.7 C Temperature Source Oral Pulse Rate 85 Pulse Rate [Apical] 80 Respiratory Rate 17 20 Respiratory Effort / Characteristics Non-Labored Spontaneous Non-Labored Spontaneous Respiratory Depth Normal Normal Respiratory Pattern Regular Blood Pressure 105/65 Blood Pressure [Right Arm] 130/63 Blood Pressure Mean 78 Blood Pressure Mean [Right Arm] 85 Pulse Oximetry 95 94 94 Oxygen Delivery Method Room Air Room Air Room Air Sepsis Recent Fever Within 48 Hours No Sepsis New/Unexplained Change in Mental Status No Sepsis Action Taken by Nursing No Action Required 05/11/25 16:48 Temperature Temperature Source Pulse Rate 81 Pulse Rate [Apical] Respiratory Rate Respiratory Effort / Characteristics Respiratory Depth Respiratory Pattern Blood Pressure Blood Pressure [Right Arm] Blood Pressure Mean Blood Pressure Mean [Right Arm] Pulse Oximetry Oxygen Delivery Method Sepsis Recent Fever Within 48 Hours Sepsis New/Unexplained Change in Mental Status Sepsis Action Taken by Nursing Laboratory Data 05/11/25 15:19 05/11/25 15:19 Lab Results 05/11/25 05/11/25 05/11/25 Range/Units 15:19 16:13 16:14 WBC 34.53 H* (4.8-10.8) K/ul RBC 3.67 L (4.70-6.10) M/uL Hgb 10.6 L (14.0-18.0) g/dl Hct 32.3 L (42.0-52.0) % MCV 88.0 (80.0-100.0) fL MCH 28.9 (25.0-34.0) pg MCHC 32.8 (32.0-36.0) g/dL RDW Std Deviation 42.4 (36.4-46.3) fL RDW Coeff of Ross 13.2 (11.5-14.5) % Plt Count 238 (130-400) K/uL MPV 9.1 L (9.4-12.4) fL Immature Gran % (Auto) 2.3 % Neut % (Auto) 85.4 % Lymph % (Auto) 1.4 % [place] % (Auto) 3.6 % Eos % (Auto) 7.1 % Baso % (Auto) 0.2 % Neut # (Auto) 29.48 H (1.40-6.50) K/uL Lymph # (Auto) 0.50 L (1.20-3.40) K/uL Marathon # (Auto) 1.23 H (0.11-0.59) K/uL Eos # (Auto) 2.45 H (0.00-0.50) K/uL Baso # (Auto) 0.06 (0.00-0.20) K/uL Immature Gran # (Auto) 0.81 H (0.01-0.20) K/uL Polychromasia 1+ Echinocytes 1+ VBG pH 7.42 H (7.36-7.41) VBG pCO2 41 (38-50) mmHg VBG pO2 20 mmHg VBG HCO3 27 mmol/L VBG O2 Saturation < 60.0 % VBG Base Excess 1.9 mEq/L Sodium 125 L (136-145) mmol/L Potassium 4.9 (3.5-5.1) mmol/L Chloride 92 L (98-107) mmol/L Carbon Dioxide 23 (21-32) mmol/L Anion Gap 10 (3-11) BUN 66 H (6-23) mg/dl Creatinine 1.31 (0.6-1.4) mg/dl Est Cr Clr Drug Dosing 52.5 ml/min eGFR 56.76 BUN/Creatinine Ratio 50.4 H (10-20) Glucose 134 H (70-99(Fasting)) mg/dl Osmolality 290 (280-300) mOsm/kg Calcium 8.8 (8.6-10.3) mg/dl Magnesium 2.0 (1.7-2.4) mg/dl Total Bilirubin 0.8 (0.2-1.0) mg/dl AST 43 H (13-39) U/L ALT 41 (7-52) U/L Alkaline Phosphatase 126 H (34-104) U/L Troponin I High Sens 59.7 H* (0-20) pg/ml Total Protein 5.5 L (6.0-8.3) gm/dl Albumin 2.8 L (3.4-5.0) gm/dl Globulin 2.7 (2.5-4.0) gm/dl Albumin/Globulin Ratio 1.0 (0.9-2) Procalcitonin 0.80 H (0-0.5) ng/ml Urine Color Yellow Urine Appearance Clear (Clear) Urine pH 5.0 (4.5-7.5) Ur Specific [place] 1.023 (1.000-1.030) Urine Protein Trace H (Negative) Urine Glucose (UA) Trace H (Negative) Urine Ketones Negative (Negative) Urine Blood 2+ H (Negative) Urine Nitrite Negative (Negative) Urine Bilirubin Negative (Negative) Urine Urobilinogen Negative (Negative) Ur Leukocyte Esterase Negative (Negative) Urine WBC (Auto) 0-5 (0-5) /hpf Urine RBC (Auto) 6-10 H (0-2) /hpf U Hyaline Cast (Auto) 11-20 H (0-2) /lpf U Epithel Cells (Auto) 0-2 (0-2) /hpf Urine Bacteria (Auto) None Seen (None Seen) Urine Osmolality 665 (500-800) mOsm/kg Ur Random Sodium 10 mmol/L Urine Comment Administered Medications Hydromorphone HCl (Hydromorphone Inj 0.5 Mg/0.5 Ml Syr) 0.5 mg IV Q6H PRN PRN Reason: Pain Stop: 05/25/25 15:45 Last Admin: 05/11/25 16:41 Dose: 0.5 mg Documented By: SANG Discontinued Medications Acetaminophen (Ofirmev) 1,000 mg in 100 mls @ 400 mls/hr IV NOW STA Stop: 05/11/25 16:12 Last Infusion: 05/11/25 17:02 Dose: Infused Documented By: Admin: 05/11/25 16:41 Dose: 400 mls/hr Documented By: ASNG Parenteral Electrolytes (Plasma-Lyte A Ph 7.4) 1,000 mls @ 999 mls/hr IV .Q1H1M ONE Stop: 05/11/25 16:59 Last Admin: 05/11/25 16:54 Dose: 999 mls/hr Documented By: SANG Cefepime HCl (Maxipime 2000mg) 2,000 mg in 20 mls @ 5 mls/min IV NOW STA; Protocol Stop: 05/11/25 16:08 Last Admin: 05/11/25 16:54 Dose: 5 mls/min Documented By: SANG Lidocaine HCl (Lidocaine 2% Jelly 5 Ml Tube) 5 ml EXT NOW ONE Stop: 05/11/25 15:58 Last Admin: 05/11/25 16:42 Dose: 5 ml Documented By: SANG Nystatin (Nystatin Susp 500,000 U/5 Ml Udc) 5 ml MT NOW ONE Stop: 05/11/25 16:31 Last Admin: 05/11/25 16:54 Dose: 5 ml Documented By: SANG Imaging Data Radiologist's Impression: Chest X-Ray 05/11/25 15:18 Chest radiograph, one view History: Dyspnea Comparison: 03/23/2025 Findings: Single AP view of the chest performed. There are new, innumerable solid appearing rounded nodules throughout the lungs. There is a new area of consolidation at the right lung apex. No pneumothorax. The cardiomediastinal silhouette is within normal limits. Normal pulmonary vascularity. No evidence for lymphadenopathy. No visualized bony or soft tissue abnormality. Impression: New, innumerable rounded pulmonary nodules since 03/23/2025, most suspicious for diffuse metastatic disease, versus possibly an infectious process such as septic emboli. Electronically signed by Skyler Briones 05-11-2025 4:41 PM Discharge Plan Visit Data Chief Complaint: Illness Stated Complaint: FAILURE TO THRIVE ED Provider: Julio Houston Discharge Problem: Adult failure to thrive, Sepsis, Metastatic cancer, Acute encephalopathy, Acute dehydration, Acute hyponatremia, Candidiasis of mouth Patient Disposition: Admitted As Inpatient Condition: Serious Forms Stand Alone Forms: My [facility], Important Visit Information Prescriptions Prescriptions: No Action gabapentin 100 mg capsule 400 mg PO BID morphine [MS Contin] 15 mg tablet extended release 15 mg PO TID hydromorphone [Dilaudid] 4 mg tablet 4 mg PO Q3H PRN polyethylene glycol 3350 [Miralax] 17 gram powder in packet 17 g PO BID Movantik 25 mg tablet 25 mg PO QAM Rx Instructions: must be taken on empty stomach; no food 1 hr after or 2-3 hrs before dose dexamethasone 4 mg tablet 4 mg PO BID sennosides [Senna Lax] 8.6 mg tablet 8.6 mg PO BID PRN loteprednol etabonate 0.5 % drops,gel 0 drp ophthalmic (eye) UD Patient Comments: 03/23- last filled 11/28 50 day supply timolol maleate 0.5 % drops, once daily 0 drp ophthalmic (eye) DAILY Patient Comments: 03/23- last filled 07/12/24 100 day supply multivitamin [Daily Multi-Vitamin] tablet 1 tab PO DAILY Patient Comments: 03/23- otc unable to verify coenzyme Q10 [CoQ-10] 30 mg capsule 30 mg PO DAILY Patient Comments: 03/23- otc unable to verify ascorbate calcium (vitamin C) 500 mg tablet 500 mg PO DAILY Patient Comments: 03/23- otc unable to verify omeprazole 40 mg capsule,delayed release(DR/EC) 40 mg PO DAILY metoprolol succinate 25 mg tablet extended release 24 hr 25 mg PO BID rosuvastatin 10 mg tablet 10 mg PO DAILY acetaminophen [Tylenol Extra Strength] 500 mg Tablet 1,000 mg PO TID Qty: 300 0RF Referrals Referrals: Tod Benavides MD [Primary Care Provider] -
[2025-05-11] MEDS ORDERED: NYSTATIN 500,000 UNIT TAB PO ONE (15:58)
[2025-05-11 16:04] LABS: Immature Granulocytes # (auto) 0.81 K/uL (0.01-0.20); Immature Granulocytes % (auto) 2.3 %; Polychromasia 1+
[2025-05-11] MEDS: ACETAMINOPHEN 1,000 MG/100 ML VIAL IV STA (16:41)
[2025-05-11] MEDS: HYDROmorphone INJ 0.5 MG/0.5 ML SYR IV PRN (16:41)
--- NOTE | 2025-05-11 16:41 | XRay Report ---
Chest radiograph, one view History: Dyspnea Comparison: 03/23/2025 Findings: Single AP view of the chest performed. There are new, innumerable solid appearing rounded nodules throughout the lungs. There is a new area of consolidation at the right lung apex. No pneumothorax. The cardiomediastinal silhouette is within normal limits. Normal pulmonary vascularity. No evidence for lymphadenopathy. No visualized bony or soft tissue abnormality. Impression: New, innumerable rounded pulmonary nodules since 03/23/2025, most suspicious for diffuse metastatic disease, versus possibly an infectious process such as septic emboli. Electronically signed by Skyler Briones 05-11-2025 4:41 PM
[2025-05-11] MEDS: LIDOCAINE 2% JELLY 5 ML TUBE EXT ONE (16:42)
[2025-05-11 16:43] LABS: Base Excess VBG 1.9 mEq/L; HCO3 VBG 27 mmol/L; Oxygen Saturation VBG < 60.0 %; PCO2 VBG 41 mmHg (38-50); PO2 VBG 20 mmHg; pH VBG 7.42 (7.36-7.41)
[2025-05-11 16:53] LABS: Appearance Urine Clear (Clear); Bacteria Urine Automated None Seen (None Seen); Epithelial Cell Urine Auto 0-2 /hpf (0-2); Glucose Urine UA Trace (Negative); WBC Urine Automated 0-5 /hpf (0-5)
[2025-05-11] MEDS: CEFEPIME 2000MG 2,000 MG/20 ML SYR IV STA (16:54)
[2025-05-11] MEDS: PLASMA-LYTE A 1,000 ML IV ONE (16:54)
[2025-05-11] MEDS: NYSTATIN SUSP 500,000 U/5 ML UDC MT ONE (16:54)
--- NOTE | 2025-05-11 17:10 | History & Physical Report ---
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 Was admitted to [facility] from 03/23/25-03/26/25 for imaging that was concerning for osseous metastatic disease with malignancy of unknown primary.He went to the hospital with back and right hip pain, found to have a nondisplaced acetabular fracture. Lytic lesions throughout right hip, esophagus and lung that was consistent with metastatic disease. Patient and not agreeable to palliative services at that time, now seeking palliative consult for anticipated home with hospice services. Generalized weakness in setting of pneumonia and end-stage metastatic disease Leukocytosis * Admit to medical for additional care * Shortness of breath, worsening fatigue, weakness, pain, unknown fevers, + chills * WBC 34K; Procal elev 0.8; CXR with New, innumerable rounded pulmonary nodules since 03/23/2025, most suspicious for diffuse metastatic disease, versus possibly an infectious process such as septic emboli. * Chest CT discussed for r/o PE-> family not agreeable given poor prognosis * empiric IV Cefepime-> patient agreeable to IV abx for infection * gentle IV fluids-> minimal po intake, clinically dry Cancer related pain * Patient and agreeable to Palliative services while inpatient-> desire hospice care at home * Unable to manage pain with fentanyl, oxycodone, gabapentin at home-> pain to mid/right back and right legs unbearable * Dilaudid 0.5 mg IV Q3H as needed ordered * Palliative consult ordered; spoke with [facility] Palliative team via [place] text with plan for tele-consult tonight * Discharge planning: Palliative to establish hospice for in home DVT Ppx: Not indicated Code status: DNR/DNI PCP: Dr. Benavides Dispo: Admit Patient seen in collaboration with Dr. Aguirre. Please see addendum.I spent a total of 60 minutes coordinating, documenting and providing care for this patient excluding time spent in the performance of separately billed services or time spent by another provider/QHP. 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 Decreased food and fluid intake for several days with ongoing nausea. Also not urinating very often. Was admitted to [facility] from 03/23/25-03/26/25 for imaging that was concerning for osseous metastatic disease with malignancy of unknown primary.He went to the hospital with back and right hip pain, found to have a nondisplaced acetabular fracture. Lytic lesions throughout right hip, esophagus and lung that was consistent with metastatic disease. Patient and not agreeable to palliative services at that time, now seeking palliative consult for anticipated home with hospice services. In the ED, patient found to meet sepsis criteria for tachycardia (HR high 90's ) and leukocytosis. Procal 0.8. BioFire negative. Urine negative for UTI. Fluid resuscitation given in ED. IV Cefepime was started for suspected infection. Chest Xray showing new, innumerable solid appearing rounded nodules throughout the lungs; new area of consolidation at the right lung apex; No pneumothorax. Lab workup showing hyponatremia with normal osmolality. Elevated BUN/Creatinine ratio and clinically dry on exam. Troponin elevated to 59.7 and without chest pain. ED provider discussed additional imaging for rule out other infectious etiology, but patient and family declined given poor prognostic value. Patient and agreeable to IV antibiotics, fluids, and pain management with Palliative consult for transition to home hospice. Denies headache, focal symptoms, chest pain, cough, rhinorrhea, abdominal pain, vomiting, numbness/tingling. History obtained primarily from patient and . Allergies Allergy/AdvReac Type Severity Reaction Status Date / Time naproxen Allergy Intermediate "I get Verified 05/11/25 17:20 numb in my face" Bee stings Allergy Severe Swelling Uncoded 05/11/25 17:20 Home Medications Medication Instructions Recorded Confirmed Type loteprednol etabonate 0.5 % eye 0 drp ophthalmic (eye) UD 05/28/19 05/11/25 History gel drops multivitamin (Daily Multi-Vitamin 1 tab PO DAILY 05/28/19 05/11/25 History tablet) timolol maleate 0.5 % once daily 0 drp ophthalmic (eye) DAILY 05/28/19 05/11/25 History eye drops ascorbate calcium (vitamin C) 500 500 mg PO DAILY 04/26/22 05/11/25 History mg tablet metoprolol succinate 25 mg 25 mg PO BID 03/23/25 05/11/25 History tablet,extended release 24 hr omeprazole 40 mg capsule,delayed 40 mg PO DAILY 03/23/25 05/11/25 History release rosuvastatin 10 mg tablet 10 mg PO DAILY 03/23/25 05/11/25 History acetaminophen 500 mg tablet 1,000 mg (2 x 500 mg) PO TID #300 03/26/25 05/11/25 Rx (Tylenol Extra Strength) tabs dexamethasone 4 mg tablet 4 mg PO BID 05/01/25 05/11/25 History gabapentin 100 mg capsule 400 mg PO BID 05/01/25 05/11/25 History hydromorphone 4 mg tablet 4 mg PO Q3H PRN Pain 05/01/25 05/11/25 History (Dilaudid) morphine 15 mg tablet,extended 15 mg PO TID 05/01/25 05/11/25 History release (MS Contin) naloxegol 25 mg tablet (Movantik) 25 mg PO QAM 05/01/25 05/11/25 History polyethylene glycol 3350 17 gram 17 g PO BID 05/01/25 05/11/25 History oral powder packet (Miralax) sennosides 8.6 mg tablet (Senna 8.6 mg PO BID PRN Constipation 05/01/25 05/11/25 History Lax) coenzyme Q10 30 mg capsule 30 mg PO DAILY 05/11/25 05/11/25 History Past Med/Surg History Problem List (Updated 05/11/25 @ 22:20 by CALISTA Corona) Pneumonia Need for comfort care Palliative care by specialist Cancer cachexia Weakness generalized Cancer-related breakthrough pain Advanced care planning/counseling discussion Candidiasis of mouth (Acute) Acute hyponatremia (Acute) Acute dehydration (Acute) Acute encephalopathy (Acute) Metastatic cancer (Acute) Sepsis (Acute) Adult failure to thrive (Acute) Chondrosarcoma (Chronic) Mass of left lung Lytic bone lesion of hip (Acute) Pathologic acetabular fracture (Acute) Severe protein-calorie malnutrition Cancer related pain (Acute) 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 Carpal tunnel syndrome, right Ulnar neuropathy at elbow of right upper extremity Rhinitis Hypercholesterolemia (Acute) Sensorineural hearing loss (SNHL) of both ears Tinnitus of both ears Asymmetrical right sensorineural hearing loss (Acute) Hearing loss (Acute) TMJ (dislocation of temporomandibular joint) (Acute) Pain in left axilla (Acute) Medical History (Updated 05/11/25 @ 22:20 by CALISTA Corona) Wide QRS complex present on electrocardiography SVT (supraventricular tachycardia) 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 Spontaneous pneumothorax Skull fracture Plate placed Detached retina Microhematuria Depression HTN (hypertension) BCC (basal cell carcinoma of skin) Coronary arteriosclerosis Dyslipidemia BPH (benign prostatic hyperplasia) DJD (degenerative joint disease) GERD (gastroesophageal reflux disease) Pneumothorax Palpitations Surgical History (Updated 05/01/25 @ 09:35 by Yadira Chandler RN) History of cataract surgery Bilateral History of carpal tunnel surgery of right wrist H/O arthroscopy of knee H/O esophagogastroduodenoscopy History of surgery Corneal transplant - left S/P colonoscopy History of bone marrow biopsy History of knee surgery History of inguinal hernia repair History of cholecystectomy History of back surgery X2 Family History (Updated 05/01/25 @ 09:37 by Yadira Chandler, LASHAY) Mother , 91yo Diabetes Myocardial infarction History of cardioversion Colorectal cancer Hypertension Father , 91yo Myocardial infarction Bladder cancer Sister Bladder cancer Son No problems noted. Daughter No problems noted. Social History (Updated 05/01/25 @ 09:38 by Yadira Chandler, LASHAY) Smoking Status: Former smoker Tobacco Type: Cigarettes Cigarettes Per Day: up to 1 pack per day; Second Hand Exposure: No; Do You Dip or Chew Tobacco: No; Hx Alcohol Use: No Hx Substance Use: No Preferred Language: Sinhala Communication Ability: Effective Visual Impairment: No Limitations Hearing Ability: Normal Coater [place] Paper Required: No Beliefs That Will Affect Care: None marital status: Current Living Situation: Spouse Current Living Situation Comment: lives with his current occupational status: retired current occupation: Psychologist; How many Children do You have: 2 Other Information That Helps Us Care for You: No Feels Safe at Home: Yes Safety Concerns: Feels Safe At This Time Diet: regular during the past year weight has: decreased > 10 lbs Assistive Devices: Walker, Wheelchair and Other Assistive Devices Comment: does not have a hospital bed at home Review of Systems Review of Systems: All systems reviewed & are unremarkable except as noted in HPI & below Physical Exam Physical Exam: VITALS: Reviewed. WEIGHT/BMI reviewed. GEN: Frail, malnourished, NAD. PSYCH: Good Judgment. AOx3. Normal memory, mood, and affect. HEENT -Head: NC/AT; -Eyes: PERRL, EOMI. No discharge or redn ess; -Ears: External ears are normal. Normal TMs. -Nose: Normal nares. -Mouth and throat: Dry mucous membranes. Good dentition. NECK: Supple, with no masses. CV: RRR, no m/r/g. LUNGS: Diminished bilaterally, ABD: Soft, NT/ND, NBS, no masses or organomegaly. : N/A SKIN: Warm, well perfused. No skin rashes or abnormal lesions. MSK: No deformities, Normal gait. EXT: No clubbing, cyanosis, or edema. NEURO: Ambulating with no limitations. Normal muscle strength and tone. No focal deficits. Results & Data Results & Data Vital Signs (Past 12 Hours) Vital Signs Temp Pulse Pulse Resp BP BP Pulse Ox 05/11/25 16:48 81 05/11/25 16:00 80 20 130/63 94 05/11/25 15:18 94 05/11/25 15:12 36.7 C 85 17 105/65 95 O2 Del Method 05/11/25 16:48 05/11/25 16:00 Room Air 05/11/25 15:18 Room Air 05/11/25 15:12 Room Air Laboratory Results Short CBC 05/11/25 Range/Units 15:19 WBC 34.53 H* (4.8-10.8) K/ul Hgb 10.6 L (14.0-18.0) g/dl Hct 32.3 L (42.0-52.0) % Plt Count 238 (130-400) K/uL BMP 05/11/25 15:19 Sodium 125 L Potassium 4.9 Chloride 92 L Carbon Dioxide 23 BUN 66 H Creatinine 1.31 Glucose 134 H Calcium 8.8 Liver Function 05/11/25 Range/Units 15:19 Total Bilirubin 0.8 (0.2-1.0) mg/dl AST 43 H (13-39) U/L ALT 41 (7-52) U/L Alkaline Phosphatase 126 H (34-104) U/L Albumin 2.8 L (3.4-5.0) gm/dl Urine 05/11/25 Range/Units 16:13 Urine Color Yellow Urine Appearance Clear (Clear) Urine pH 5.0 (4.5-7.5) Ur Specific [place] 1.023 (1.000-1.030) Urine Protein Trace H (Negative) Urine Glucose (UA) Trace H (Negative) Diagnostic Findings Chest X-Ray 05/11/25 15:18 Chest radiograph, one view History: Dyspnea Comparison: 03/23/2025 Findings: Single AP view of the chest performed. There are new, innumerable solid appearing rounded nodules throughout the lungs. There is a new area of consolidation at the right lung apex. No pneumothorax. The cardiomediastinal silhouette is within normal limits. Normal pulmonary vascularity. No evidence for lymphadenopathy. No visualized bony or soft tissue abnormality. Impression: New, innumerable rounded pulmonary nodules since 03/23/2025, most suspicious for diffuse metastatic disease, versus possibly an infectious process such as septic emboli. Electronically signed by Skyler Briones 05-11-2025 4:41 PM
[2025-05-11 17:23] LABS: Chlamydia pneumoniae PCR Not Detected (NotDetected); Coronavirus 229E PCR Not Detected (NotDetected); Coronavirus CoV-2 (COVID19)PCR Not Detected (NotDetected); Coronavirus HKU1 PCR Not Detected (NotDetected); Coronavirus NL63 PCR Not Detected (NotDetected); Coronavirus OC43PCR Not Detected (NotDetected); Human Metapneumovirus PCR Not Detected (NotDetected); Parainfluenza Virus 1 PCR Not Detected (NotDetected); Parainfluenza Virus 2 PCR Not Detected (NotDetected); Parainfluenza Virus 3 PCR Not Detected (NotDetected); Parainfluenza Virus 4 PCR Not Detected (NotDetected); Respiratory Syncytial VirusPCR Not Detected (NotDetected); Rhinovirus/Enterovirus PCR Not Detected (NotDetected)
--- NOTE | 2025-05-11 18:52 | Communication Note ---
Date of Service: May 11, 2025 Attending Addendum: Case reviewed with the advanced practitioner. I have personally performed a history and physical examination on the patient. I have reviewed the advanced practitioner's documentation on the date of service referenced in note, and I agree with, and take responsibility for the plan of care. please refer to her notes for full details patient seen and examined, records reviewed by myself as well on exam, patient seen resting in bed, not in distress, appears weak states he is still having low back pain no shortness of breath, chest pain on exam VS noted and reviewed oriented x3, not in distress, speaks in sentences with no effort nor accessory muscle use normal rate, regular rhythm, no murmurs mild decreased but clear breath sounds bilaterally non distended, soft, nontender gr 2 BL lower leg edema, erythema, warmth no neuro deficits all labs, imaging noted and reviewed ASSESSMENT AND PLAN> GENERALIZED WEAKNESS, ANOREXIA likely secondary to progression of metastatic chondrocarcinoma possible Pneumonia WBC 36k CXR: New, innumerable rounded pulmonary nodules since 03/23/2025, most suspicious for diffuse metastatic disease, versus possibly an infectious process such as septic emboli. ff up cultures empiric IV Cefepime gentle IV fluids UNCONTROLLED PAIN d/c Fentanyl patch for now Dilaudid 0.5mg q3h PRN patient would like to focus on comfort at this time patient and his Lakshmi would like to have Palliative care service consulted to discuss possible hospice at home other diagnoses and plan of care as per advanced practitioner's notes I spent a total of 40 minutes coordinating, documenting, and providing care for this patient, excluding time spent in the performance of separately billed services or time spent by another provider/QHP. Dennys Aguirre MD
--- NOTE | 2025-05-11 19:02 | Palliative Care Consultation ---
Date of Consultation May 11, 2025 Assessment & Plan (1) Advanced care planning/counseling discussion: A telemed ACP was held face to face with Mk and his with 2-way audio and visual telemed, for 30min Mk and would like full transition to comfort car. He tells me his pain is worsening and unbearable. He has been struggling with severe, uncontrolled cancer pain for weeks and notes he has had significant trouble finding a regimen that brought relief. On his best days, pain would relieve to a 5-6. We discussed the option of a Dilaudid DIE CUT OPERATOR and he was in agreement. I have ordered Dilaudid 0.1mg per hour with 0.3mg q15min DIE CUT OPERATOR for him. Mk and his want to return home with hospice. I advised we will work with [facility] tomorrow to get him home with hospice. He is already established with [facility] [place] and they also offer hospice so it should be relatively easy to get him back home with [facility] and they are one of 3 companies that will continue a DIE CUT OPERATOR for terminal cancer patients at home. I provided education about the hospice benefit: an interdisciplinary program offered by nurses, nurses aides, social workers, chaplains and a biomedical engineering technologist for patients with a terminal condition and a life expectancy of less than 6 months. This is covered by Medicare at 100%/no out of pocket expense to patient and all meds/supplies needed by patient for the reason they are on hospice are paid for/covered by hospice. The goal is assure quality of life of the patient in their home setting (home, fci, inpatient hospice setting) by providing symptoms management, psychosocial and spiritual support. However, they cannot offer 24 hours care and if the family is unable to provide that care, they will have to consider personal care with out of pocket cost vs. fci placement. We discussed the goals of hospice as a patient service and the goals of care; we discussed EOL trajectories and transitions timothy the emotional impact of realizing mortality as a concrete reality from prior abstract considerations. Pt was reassured that no matter where they are along this trajectory, they are not alone - their medical team will remain by their side through their journey. Discussed the pros/cons of accepting help when especially weakened and distressed by pain-which would also help provide relief/decrease caregiver burden/strain. We discussed Mk's rapid decline over the past few weeks. He is now PS 20%, wholly bedbound, totally dependent for care, very weak and not taking much PO. He struggles with incontinence. he has been steadily losing weight. I reviewed with them some cancer patients have a poor prognosis from diagnosis and the single most important predictive factor in cancer is performance status: a measure of how much a patient can do for themselves, their activity and energy level. If patients are spending more than 50% of their time in a chair or lying down, prognosis is estimated to be about 3 months or less. Mrs. Locke specifically asked about the role of supplemental oxygen (she is a retired RN) and we reviewed that for patients at the end of life, oxygen delivered by a nasal cannula provides no additional symptomatic benefit for relief of refractory dyspnea in patients with life-limiting illness compared with room air: there's a point at which that the oxygen level gets so low that it's no longer compatible with life. By providing supplemental oxygen, the dying process will be unnecessarily prolonged. We will use use less burdensome but more effective strategies such as comfort care meds, oscillating fan, massage, repositioning, etc. (Shea AP, Adelina CF, Daniela PA, et al. Effect of palliative oxygen versus room air in relief of breathlessness in patients with refractory dyspnoea: a double-blind, randomised controlled trial. Lancet. 2010;376(7737):544-793. doi:10.1016/K[address]10-[address]87(96)13571-4) At their request we also reviewed changes pt may move through in the dying process including but not limited to sleeping more, disorientation when awake, restlessness, diminished senses/inability to respond to stimulus although ability to be aware of them remains intact longer, changes in body temperatures, skin changes/mottling/cyanosis, respiratory pattern changes, oral secretions. Family verbalized understanding. The goal is to assure a peaceful . Please page me anytime over night for any issues /if pain is not well controlled and I can adjust meds as needed. I am going to meet with them as a family tomorrow at 11am when the son and dtr arrive as well. (2) Cancer related pain: Severe and uncontrolled has failed various oral trials + TDF -see HPI Will begin Dilaudid DIE CUT OPERATOR as follows: Dilaudid 0.1mg/h continuous hourly rate with Dilaudid 0.3mg Q15min prn DIE CUT OPERATOR for BTP Will leave Dilaudid 0.5mg IV q30min prn for nursing to administer is pain remains severe and uncontrolled by DIE CUT OPERATOR Call me for dose modifications/page anytime (please priority page for urgent needs timothy overnight) Ativan 0.5mg IV q4h prn anxiety, agitation, insomnia, spasms, n/v Haldol 0.5mg oral intensol solution under the tongue q6h prn nausea/delirium (3) Cancer-related breakthrough pain: (4) Weakness generalized: (5) Adult failure to thrive: (6) Cancer cachexia: (7) Palliative care by specialist: Introduced Palliative Medicine and explained our role in patient's care. Patient and/or family were receptive to palliative services for goals of care discussions. Reviewed we are different from hospice, a home health nurse visiting service. (8) Need for comfort care: Plan As above. Thank you for allowing us to participate in the ongoing care of this patient. Please page with any additional concerns. Kathia Lowe DNP Director, Palliative Medicine History of Present Illness Reason for Consultation: terminal chondrosarcoma comfort care History of Present Illness A telemed visit was performed today for Dewayne Locke using 2-way audio + visual connection. After connecting to the visit, permission was given verbally from pt and to proceed with telemed visit. 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 Mrs. Locke has a sister and a sister in law who offered to help, they are both also retired nurses. ONCOLOGY DIAGNOSIS: Lytic lesions involving the right hip ( right acetabular region and right iliac bone). Left lower lobe 1.2 cm lung nodule. Biopsy from the right iliac bone scattered plasma cells. ( M spike negative). Biopsy from the right acetabulum(04/10/2025). --> high-grade sarcoma with carti laginous differentiation, favoring de differentiated chondrosarcoma, grade 3. NGS pending. Bone marrow examination on 04/10/2025 --> cellular bone marrow with maturing trilineage hematopoiesis and mild erythroid hyperplasia. No evidence of myeloma, lymphoma or metastatic disease. +Right lower lobe lung nodule +Paraesophageal lymph node. NGS checkup shows IDH1 mutation Recent decline: + occ incontinence. Legs generally weak but bed bound x8 weeks PS 4 Palliative Performance Status today = 20% Followed by [facility], telemed note from earlier today reads as follows: "At last visit on 05/04 and telephone visit on 05/06, decision was made to trial Fentanyl 50 mcg Q72H with Dilaudid 2-4 mg Q4H PRN. Unfortunately, the patient experienced sedation and is being seen for a video visit today. The patient was seen via video visit. He is very lethargic, pale and confused. His removed his Fentanyl patches at 2:30 AM and he has not had any doses of Dilaudid since then. He does not appear to be restless, agitated, moaning, groaning, or have an elevated respiratory rate currently. He does wake up to talk to me, but is not able to retain anything we speak about. He does not have decision making capacity. I spoke to his about how he is very different from his baseline and my current recommendations are to either enroll in hospice urgently or seek bhavna gency evaluation. His expresses understanding, but the patient is not able to retain this information in a meaningful way. He does ask his if she would be disappointed if he stayed home and . She reassured him, but tells me that she wants some time to talk to him alone before making a decision and will call us back if she needs a hospice referral. My recommendation was to seek emergency evaluation via EMS at [facility] as his cancer doctors are based at this facility and it is near their house." Prior relevant palliative medication trials: - MS Contin 15 TID ER - Dilaudid 4 mg PO Q3H PRN - Gabapentin 400 mg BID - Steroid taper was started (4 g BID 04/28-05/04, 2 mg BID 05/04-05/10, 2 mg QD 05/10- 05/16). - He was switched to a Fentanyl patch on 05/04, but had uncontrolled pain Fentanyl patch was increased to 50 mcg Q72H and unfortunately, he became too somnolent and they discontinued this earlier today at 230AM - Chrondosarcoma with plasma cell abnormality - Diagnosed in 03/2025 with multiple lytic lesions (right acetabular, right iliac, ?lung metastases - left lower lung lobe node, lytic skeletal lesions, jayshree metastases) - Oncology note was reviewed from 04/30/2025. - Follows with: Dr. Aguillon (heme/onc) and Dr. Aguillon (rad onc) - Currently undergoing palliative xrt for symptomatic relief, 11/27 treatments Functional Status: bedbound Allergies Allergy/AdvReac Type Severity Reaction Status Date / Time naproxen Allergy Intermediate "I get Verified 05/11/25 17:20 numb in my face" Bee stings Allergy Severe Swelling Uncoded 05/11/25 17:20 Home Medications Medication Instructions Recorded Confirmed Type loteprednol etabonate 0.5 % eye 0 drp ophthalmic (eye) UD 05/28/19 05/11/25 History gel drops multivitamin (Daily Multi-Vitamin 1 tab PO DAILY 05/28/19 05/11/25 History tablet) timolol maleate 0.5 % once daily 0 drp ophthalmic (eye) DAILY 05/28/19 05/11/25 History eye drops ascorbate calcium (vitamin C) 500 500 mg PO DAILY 04/26/22 05/11/25 History mg tablet metoprolol succinate 25 mg 25 mg PO BID 03/23/25 05/11/25 History tablet,extended release 24 hr omeprazole 40 mg capsule,delayed 40 mg PO DAILY 03/23/25 05/11/25 History release rosuvastatin 10 mg tablet 10 mg PO DAILY 03/23/25 05/11/25 History acetaminophen 500 mg tablet 1,000 mg (2 x 500 mg) PO TID #300 03/26/25 05/11/25 Rx (Tylenol Extra Strength) tabs dexamethasone 4 mg tablet 4 mg PO BID 05/01/25 05/11/25 History gabapentin 100 mg capsule 400 mg PO BID 05/01/25 05/11/25 History hydromorphone 4 mg tablet 4 mg PO Q3H PRN Pain 05/01/25 05/11/25 History (Dilaudid) morphine 15 mg tablet,extended 15 mg PO TID 05/01/25 05/11/25 History release (MS Contin) naloxegol 25 mg tablet (Movantik) 25 mg PO QAM 05/01/25 05/11/25 History polyethylene glycol 3350 17 gram 17 g PO BID 05/01/25 05/11/25 History oral powder packet (Miralax) sennosides 8.6 mg tablet (Senna 8.6 mg PO BID PRN Constipation 05/01/25 05/11/25 History Lax) coenzyme Q10 30 mg capsule 30 mg PO DAILY 05/11/25 05/11/25 History Patient History Medical History (Updated 05/11/25 @ 19:55 by Shanice Lowe DNP) Wide QRS complex present on electrocardiography SVT (supraventricular tachycardia) 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 Spontaneous pneumothorax Skull fracture Plate placed Detached retina Microhematuria Depression HTN (hypertension) BCC (basal cell carcinoma of skin) Coronary arteriosclerosis Dyslipidemia BPH (benign prostatic hyperplasia) DJD (degenerative joint disease) GERD (gastroesophageal reflux disease) Pneumothorax Palpitations Surgical History (Updated 05/01/25 @ 09:35 by Yadira Chandler RN) History of cataract surgery Bilateral History of carpal tunnel surgery of right wrist H/O arthroscopy of knee H/O esophagogastroduodenoscopy History of surgery Corneal transplant - left S/P colonoscopy History of bone marrow biopsy History of knee surgery History of inguinal hernia repair History of cholecystectomy History of back surgery X2 Family History (Updated 05/01/25 @ 09:37 by Yadira Chandler RN) Mother , 91yo Diabetes Myocardial infarction History of cardioversion Colorectal cancer Hypertension Father , 91yo Myocardial infarction Bladder cancer Sister Bladder cancer Son No problems noted. Daughter No problems noted. Social History (Updated 05/01/25 @ 09:38 by Yadira Chandler RN) Smoking Status: Former smoker Tobacco Type: Cigarettes Cigarettes Per Day: up to 1 pack per day; Do You Dip or Chew Tobacco: No; Hx Alcohol Use: Yes Alcohol Intake Frequency Comment: socially/weekends Hx Substance Use: No Preferred Language: Telugu Communication Ability: Effective Visual Impairment: No Limitations Hearing Ability: Normal Snorkelling Instructor Required: No Beliefs That Will Affect Care: None marital status: Current Living Situation: Spouse current occupational status: retired current occupation: Psychologist; How many Children do You have: 2 Feels Safe at Home: Yes Diet: regular during the past year weight has: decreased > 10 lbs Assistive Devices: Glasses Review of Systems Review of Systems: All systems reviewed & are unremarkable except as noted in Subjective Physical Exam Physical Exam: Limited exam, this is a telemed visit Mk is lying in bed semi reclined He is cachectic and frail He is awake and alert, answering appropriately He tells me he is in excruciating pain Dilaudid IV dose earlier was helpful but not lasting He reports pain has not been well controlled and is always there He is grimacing and shaking with waves of pain at times He is very pale He appears very uncomfortable Results & Data Vital Signs (Past 12 Hours) Vital Signs Temp Pulse Pulse Resp BP BP Pulse Ox 05/11/25 16:48 81 05/11/25 16:00 80 20 130/63 94 05/11/25 15:18 94 05/11/25 15:12 36.7 C 85 17 105/65 95 O2 Del Method 05/11/25 16:48 05/11/25 16:00 Room Air 05/11/25 15:18 Room Air 05/11/25 15:12 Room Air Laboratory Results 05/11/25 05/11/25 05/11/25 Range/Units 16:20 16:14 16:13 WBC (4.8-10.8) K/ul RBC (4.70-6.10) M/uL Hgb (14.0-18.0) g/dl Hct (42.0-52.0) % MCV (80.0-100.0) fL MCH (25.0-34.0) pg MCHC (32.0-36.0) g/dL RDW Std Deviation (36.4-46.3) fL RDW Coeff of Ross (11.5-14.5) % Plt Count (130-400) K/uL MPV (9.4-12.4) fL Immature Gran % (Auto) % Neut % (Auto) % Lymph % (Auto) % [place] % (Auto) % Eos % (Auto) % Baso % (Auto) % Neut # (Auto) (1.40-6.50) K/uL Lymph # (Auto) (1.20-3.40) K/uL [place] # (Auto) (0.11-0.59) K/uL Eos # (Auto) (0.00-0.50) K/uL Baso # (Auto) (0.00-0.20) K/uL Immature Gran # (Auto) (0.01-0.20) K/uL Polychromasia Echinocytes VBG pH 7.42 H (7.36-7.41) VBG pCO2 41 (38-50) mmHg VBG pO2 20 mmHg VBG HCO3 27 mmol/L VBG O2 Saturation < 60.0 % VBG Base Excess 1.9 mEq/L Sodium (136-145) mmol/L Potassium (3.5-5.1) mmol/L Chloride (98-107) mmol/L Carbon Dioxide (21-32) mmol/L Anion Gap (3-11) BUN (6-23) mg/dl Creatinine (0.6-1.4) mg/dl Est Cr Clr Drug Dosing ml/min eGFR BUN/Creatinine Ratio (10-20) Glucose (70-99(Fasting)) mg/dl Osmolality 290 (280-300) mOsm/kg Calcium (8.6-10.3) mg/dl Magnesium (1.7-2.4) mg/dl Total Bilirubin (0.2-1.0) mg/dl AST (13-39) U/L ALT (7-52) U/L Alkaline Phosphatase (34-104) U/L Troponin I High Sens (0-20) pg/ml B-Natriuretic Peptide 79 (0-100) pg/ml Total Protein (6.0-8.3) gm/dl Albumin (3.4-5.0) gm/dl Globulin (2.5-4.0) gm/dl Albumin/Globulin Ratio (0.9-2) Procalcitonin (0-0.5) ng/ml Urine Color Yellow Urine Appearance Clear (Clear) Urine pH 5.0 (4.5-7.5) Ur Specific [place] 1.023 (1.000-1.030) Urine Protein Trace H (Negative) Urine Glucose (UA) Trace H (Negative) Urine Ketones Negative (Negative) Urine Blood 2+ H (Negative) Urine Nitrite Negative (Negative) Urine Bilirubin Negative (Negative) Urine Urobilinogen Negative (Negative) Ur Leukocyte Esterase Negative (Negative) Urine WBC (Auto) 0-5 (0-5) /hpf Urine RBC (Auto) 6-10 H (0-2) /hpf U Hyaline Cast (Auto) 11-20 H (0-2) /lpf U Epithel Cells (Auto) 0-2 (0-2) /hpf Urine Bacteria (Auto) None Seen (None Seen) Urine Osmolality 665 (500-800) mOsm/kg Ur Random Sodium 10 mmol/L Urine Comment Adenovirus (PCR) Not Detected (NotDetected) B. pertussis DNA (PCR) Not Detected (NotDetected) B.parapertussis DNA PCR Not Detected (NotDetected) C. pneumoniae DNA (PCR) Not Detected (NotDetected) Coronavirus OC43 (PCR) Not Detected (NotDetected) Coronavirus HKU1 (PCR) Not Detected (NotDetected) Coronavirus 229E (PCR) Not Detected (NotDetected) SARS-CoV-2 (PCR) Not Detected (NotDetected) Coronavirus NL63 (PCR) Not Detected (NotDetected) Human Metapneumovir PCR Not Detected (NotDetected) Influenza Type A (PCR) Not Detected (NotDetected) Influenza Type B (PCR) Not Detected (NotDetected) M. pneumoniae (PCR) Not Detected (NotDetected) Parainfluenza 1 (PCR) Not Detected (NotDetected) Parainfluenza 2 (PCR) Not Detected (NotDetected) Parainfluenza 3 (PCR) Not Detected (NotDetected) Parainfluenza 4 (PCR) Not Detected (NotDetected) RSV (PCR) Not Detected (NotDetected) Entero/Rhino (PCR) Not Detected (NotDetected) 05/11/25 Range/Units 15:19 WBC 34.53 H* (4.8-10.8) K/ul RBC 3.67 L (4.70-6.10) M/uL Hgb 10.6 L (14.0-18.0) g/dl Hct 32.3 L (42.0-52.0) % MCV 88.0 (80.0-100.0) fL MCH 28.9 (25.0-34.0) pg MCHC 32.8 (32.0-36.0) g/dL RDW Std Deviation 42.4 (36.4-46.3) fL RDW Coeff of Ross 13.2 (11.5-14.5) % Plt Count 238 (130-400) K/uL MPV 9.1 L (9.4-12.4) fL Immature Gran % (Auto) 2.3 % Neut % (Auto) 85.4 % Lymph % (Auto) 1.4 % [place] % (Auto) 3.6 % Eos % (Auto) 7.1 % Baso % (Auto) 0.2 % Neut # (Auto) 29.48 H (1.40-6.50) K/uL Lymph # (Auto) 0.50 L (1.20-3.40) K/uL [place] # (Auto) 1.23 H (0.11-0.59) K/uL Eos # (Auto) 2.45 H (0.00-0.50) K/uL Baso # (Auto) 0.06 (0.00-0.20) K/uL Immature Gran # (Auto) 0.81 H (0.01-0.20) K/uL Polychromasia 1+ Echinocytes 1+ VBG pH (7.36-7.41) VBG pCO2 (38-50) mmHg VBG pO2 mmHg VBG HCO3 mmol/L VBG O2 Saturation % VBG Base Excess mEq/L Sodium 125 L (136-145) mmol/L Potassium 4.9 (3.5-5.1) mmol/L Chloride 92 L (98-107) mmol/L Carbon Dioxide 23 (21-32) mmol/L Anion Gap 10 (3-11) BUN 66 H (6-23) mg/dl Creatinine 1.31 (0.6-1.4) mg/dl Est Cr Clr Drug Dosing 52.5 ml/min eGFR 56.76 BUN/Creatinine Ratio 50.4 H (10-20) Glucose 134 H (70-99(Fasting)) mg/dl Osmolality (280-300) mOsm/kg Calcium 8.8 (8.6-10.3) mg/dl Magnesium 2.0 (1.7-2.4) mg/dl Total Bilirubin 0.8 (0.2-1.0) mg/dl AST 43 H (13-39) U/L ALT 41 (7-52) U/L Alkaline Phosphatase 126 H (34-104) U/L Troponin I High Sens 59.7 H* (0-20) pg/ml B-Natriuretic Peptide (0-100) pg/ml Total Protein 5.5 L (6.0-8.3) gm/dl Albumin 2.8 L (3.4-5.0) gm/dl Globulin 2.7 (2.5-4.0) gm/dl Albumin/Globulin Ratio 1.0 (0.9-2) Procalcitonin 0.80 H (0-0.5) ng/ml Urine Color Urine Appearance (Clear) Urine pH (4.5-7.5) Ur Specific [place] (1.000-1.030) Urine Protein (Negative) Urine Glucose (UA) (Negative) Urine Ketones (Negative) Urine Blood (Negative) Urine Nitrite (Negative) Urine Bilirubin (Negative) Urine Urobilinogen (Negative) Ur Leukocyte Esterase (Negative) Urine WBC (Auto) (0-5) /hpf Urine RBC (Auto) (0-2) /hpf U Hyaline Cast (Auto) (0-2) /lpf U Epithel Cells (Auto) (0-2) /hpf Urine Bacteria (Auto) (None Seen) Urine Osmolality (500-800) mOsm/kg Ur Random Sodium mmol/L Urine Comment Adenovirus (PCR) (NotDetected) B. pertussis DNA (PCR) (NotDetected) B.parapertussis DNA PCR (NotDetected) C. pneumoniae DNA (PCR) (NotDetected) Coronavirus OC43 (PCR) (NotDetected) Coronavirus HKU1 (PCR) (NotDetected) Coronavirus 229E (PCR) (NotDetected) SARS-CoV-2 (PCR) (NotDetected) Coronavirus NL63 (PCR) (NotDetected) Human Metapneumovir PCR (NotDetected) Influenza Type A (PCR) (NotDetected) Influenza Type B (PCR) (NotDetected) M. pneumoniae (PCR) (NotDetected) Parainfluenza 1 (PCR) (NotDetected) Parainfluenza 2 (PCR) (NotDetected) Parainfluenza 3 (PCR) (NotDetected) Parainfluenza 4 (PCR) (NotDetected) RSV (PCR) (NotDetected) Entero/Rhino (PCR) (NotDetected) Diagnostic Findings Chest X-Ray 05/11/25 15:18 Chest radiograph, one view History: Dyspnea Comparison: 03/23/2025 Findings: Single AP view of the chest performed. There are new, innumerable solid appearing rounded nodules throughout the lungs. There is a new area of consolidation at the right lung apex. No pneumothorax. The cardiomediastinal silhouette is within normal limits. Normal pulmonary vascularity. No evidence for lymphadenopathy. No visualized bony or soft tissue abnormality. Impression: New, innumerable rounded pulmonary nodules since 03/23/2025, most suspicious for diffuse metastatic disease, versus possibly an infectious process such as septic emboli. Electronically signed by Skyler Briones 05-11-2025 4:41 PM PG Care Time/CCT Total # of Minutes Spent Total Time Spent with Patient: Total time spent is greater than 50% in coordination of care (as documented) at patient's floor/unit and/or counseling patient: I spent 105 minutes overall addressing this case: 25 min in medical data review/discussion with referring provider(s) and/or preparation for the visit incl OSH data review, d/w OSH providers 10 min in direct video/2 way audio+ video interaction with the patient/exam 30 min in Advance Care Planning/Goals of Care discussions as detailed above in note (must be >16min) 20 min in subsequent review and synthesis of assessment and plan 20 min communicating with other providers regarding the patient's case: nursing, pharmacy, primary team Advanced Care Planning 35768 Advanced Care Planning 30 [place] [address] IN/OBS CONSULT LVL 5,80M (25 - SIGNIFICANT, SEPARATELY IDENTIFIABLE ) Patient Type New Medical Decision Making High Complexity Diagnoses Advanced care planning/counseling discussion Z71.89 Cancer related pain G89.3 Cancer-related breakthrough pain G89.3 Weakness generalized R53.1 Adult failure to thrive R62.7 Cancer cachexia R64 Palliative care by specialist Z51.5 Need for comfort care Additional Codes Advanced Care Planning - 85556 Advanced Care Planning 30 Min: [id number] Advanced Care Planning 30 Min ([id number]) Comment [id number], [id number]
[2025-05-11] MEDS: SODIUM CHLORIDE 0.9% 500 ML IV SCH (19:16)
[2025-05-11] MEDS ORDERED: GLYCOPYRROLATE 0.2 MG/ML VIAL IV PRN (20:04)
[2025-05-11] MEDS ORDERED: ONDANSETRON INJ 2 MG/ML 2 ML VIAL IV PRN ×2 (20:04→21:57)
[2025-05-11] MEDS ORDERED: HYDROmorphone BOLUS from BAG IV PRN (20:04)
[2025-05-11] MEDS ORDERED: STAT IV Infusion **Titration per Protocol STA (20:04)
[2025-05-11] MEDS ORDERED: HALOPERIDOL ORAL SOLN 2 MG/ML PO PRN (20:04)
[2025-05-11] MEDS ORDERED: HYDROmorphone INJ 0.5 MG/0.5 ML SYR IV PRN ×2 (20:10→21:57)
[2025-05-11] MEDS ORDERED: HYDROmorphone 100 MG/100 ML BAG IV SCH (20:15)
[2025-05-11] MEDS ORDERED: NALOXONE HCL 0.4 MG/1 ML VIAL/CARP IV PRN (20:28)
[2025-05-11] MEDS ORDERED: ALUMINUM/MAGNESIUM SUSP 30 ML UDC PO PRN (21:57)
[2025-05-11] MEDS ORDERED: ACETAMINOPHEN 325 MG TAB PO PRN (21:57)
[2025-05-11] MEDS ORDERED: MELATONIN 3 MG TAB PO PRN (21:57)
[2025-05-11] MEDS ORDERED: MAGNESIUM HYDROXIDE SUSP 30 ML UDC PO PRN (21:57)
[2025-05-11] MEDS: HYDROmorphone PCA 30 MG/30 ML IV PRN (22:17)
[2025-05-11] MEDS: DOCUSATE SODIUM/SENNA 50/8.6MG TAB PO SCH (23:31)
[2025-05-12 01:48] VITALS: RESP 20
[2025-05-12 05:52] VITALS: BP 107/69; PULSE 103; TEMP 97.7; O2SAT 93
--- NOTE | 2025-05-12 11:57 | Palliative Care Progress Note ---
Date of Service May 12, 2025 Assessment & Plan (1) Cancer related pain: (2) Cancer cachexia: (3) Advanced care planning/counseling discussion: Plan: A 45min face to face ACP meeting was held at bedside with Mk and his , Lakshmi. He tells me that his pain is better and while he feels he could use another dose increase, he feels for now he wants to stay at current dose and await arrival of his children. He reiterates the pain from past few months has been increasing in a profound and severe way, he has struggled to find a pain regimen that works for him and that he could tolerate however it has been a struggle. Mk states he wants to go home and asks if that will happen tomorrow. He states he has more family and support with sister and sister in law, who are also RNs in addition to his . [facility] are [facility]. I notified Orly from the hospice bc Mrs Locke wants to meet/speak with her today before going home. In my conversation with [facility] Director, Wei Carter, the DICTAPHONE MECHANIC will be filled by [facility], per hospice. Mk is having a little myoclonus likely a SE from Dilaudid - I suggested we use low dose IV Ativan to help with this before it becomes more problematic. Mk and Lakshmi were in agreement. Mk states now that pain is better he feels a little hungry but has not been able to tolerate anything hard to chew. He would like some chicken noodle soup which we requested from food services and will be here shortly. I have requested a bereavement tray for the family. (4) Weakness generalized: (5) Cancer-related breakthrough pain: (6) Palliative care by specialist: (7) Need for comfort care: Plan As above Thank you for allowing us to participate in the ongoing care of this patient. Please page with any additional concerns. Kathia Lowe DNP Director, Palliative Medicine Admission and Anticipated Discharge Date Admission Date: May 11, 2025 Results & Data Vital Signs (Past 12 Hours) Vital Signs Temp Pulse Resp BP Pulse Ox O2 Del Method O2 Flow Rate 05/12/25 05:49 36.5 C 103 H 20 107/69 93 Nasal Cannula 2 05/12/25 01:45 36.8 C 92 H 20 109/70 95 Nasal Cannula 2.0 05/12/25 00:42 36.4 C L 96 H 22 109/67 95 Nasal Cannula 2.0 PG Care Time/CCT Total # of Minutes Spent Total Time Spent with Patient: Total time spent is greater than 50% in coordination of care (as documented) at patient's floor/unit and/or counseling patient: I spent 120 minutes overall addressing this case: 15 min in medical data review/discussion with referring provider(s) and/or preparation for the visit 15 min in direct interaction with the patient/exam 60 min in Advance Care Planning/Goals of Care discussions as detailed above in note (must be >16min) 10 min in subsequent review and synthesis of assessment and plan 20 min communicating with other providers regarding the patient's case: food services, nursing, care mgt, Pall med [facility], primary team Advanced Care Planning 57545 Advanced Care Planning 30 Min 52075 Advanced Care Planning Additional 30 Min [place] [address] SUB INP/OBS CARE 3/50MIN (25 - SIGNIFICANT, SEPARATELY IDENTIFIABLE ) Patient Type Established Medical Decision Making High Complexity Diagnoses Cancer related pain G89.3 Cancer cachexia R64 Advanced care planning/counseling discussion Z71.89 Weakness generalized R53.1 Cancer-related breakthrough pain G89.3 Palliative care by specialist Z51.5 Need for comfort care Additional Codes Advanced Care Planning - 82817 Advanced Care Planning Additional 30 Min: 19725 Advanced Care Planning Additional 30 Min ([id number]) Advanced Care Planning - 41418 Advanced Care Planning 30 Min: 52886 Advanced Care Planning 30 Min ([id number]) Comment [id number], [id number], + 10min additional time
--- NOTE | 2025-05-12 12:01 | Electrocardiogram Report ---
Test Reason : Blood Pressure : */* mmHG Vent. Rate : 87 BPM Atrial Rate : 87 BPM P-R Int : 104 ms QRS Dur : 108 ms QT Int : 386 ms P-R-T Axes : 50 76 71 degrees QTcB Int : 464 ms Poor data quality, interpretation may be adversely affected Sinus rhythm with short CT Nonspecific ST and T wave abnormality Abnormal ECG When compared with ECG of 23-Mar-2025 12:16, CT interval has decreased ST elevation now present in Inferior leads T wave inversion no longer evident in Inferior leads T wave inversion now evident in Anterior leads Confirmed by Shelton Mayer ([id number]) on 05/12/2025 12:00:42 PM Referred By: REFERRED SELF Confirmed By: Shelton Mayer
--- NOTE | 2025-05-12 15:21 | Hospitalist Progress Note ---
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 Presents with uncontrolled breakthrough cancer pain. Patient, and family requesting management of his pain and arrangements for home hospice. ADDICTION MEDICINE PHYSICIAN pump was restarted this morning with basal rate and as needed boluses. Patient reevaluated this afternoon. He much more comfortable than this morning at the basal rate. Still in a fair amount of pain with any type of movement. Will increase ADDICTION MEDICINE PHYSICIAN bolus dose for better control of his pain whenever he needs to be moved and cared for. and daughter at bedside in agreement Case management involved coordinating home hospice with [facility] Palliative care also involved in and helping to coordinate comfort care measures and medications Continue to use as needed Ativan for any type of myoclonus or tremor that may be associated with ADDICTION MEDICINE PHYSICIAN, anticipate will be transition to sublingual Ativan at discharge reports that home hospice organization will have things ready for them at home for anticipated discharge tomorrow Continue to evaluate patient's comfort needs Admission and Anticipated Discharge Date Admission Date: May 11, 2025 Subjective Patient seen earlier this morning. Still in significant amounts of pain ADDICTION MEDICINE PHYSICIAN pump was turned off. at bedside and concerned about his pain management. She confirms that she wants him in home hospice with a ADDICTION MEDICINE PHYSICIAN pump. Physical Exam Physical Exam: Constitutional: Frail, cachectic, moderate distress due to pain HEENT: Dry Lungs: Decreased CV: S1-S2, regular Abdomen: Soft, nontender, nondistended Extremities: No significant edema Neuro: Overall weak Psych: Flat affect Results & Data Results & Data Vital Signs (Past 12 Hours) Vital Signs Temp Pulse Resp BP Pulse Ox O2 Del Method O2 Flow Rate 05/12/25 05:49 36.5 C 103 H 20 107/69 93 Nasal Cannula 2 Diagnostic Findings Reviewed imaging, laboratory and diagnostic studies. Pertinent findings as below.
--- NOTE | 2025-05-13 00:36 | Communication Note ---
Date of Service: May 13, 2025 Late entry note Palliative Med Sales Representative Business Courses Paged approx [phone] with report pt is alarming on SIGNAL SUPERVISOR, respirations 10-12, machine was stopping. When awake respirations 18. He used 2 bolus doses since SIGNAL SUPERVISOR was started and reports good relief of pain per nursing. Will suspend continuous rate and use SIGNAL SUPERVISOR only for now, pt remains able to use SIGNAL SUPERVISOR option at this time but can readjust as situation evolves. Thank you for allowing us to participate in the ongoing care of this patient. Please page with any additional concerns. Kathia Lowe DNP Director, Palliative Medicine
[2025-05-13] MEDS: HYDROmorphone INJ 0.5 MG/0.5 ML SYR IV PRN (08:07)
[2025-05-13] MEDS ORDERED: HYDROmorphone INJ 0.5 MG/0.5 ML SYR IV PRN (08:11)
--- NOTE | 2025-05-13 08:12 | Communication Note ---
Date of Service: May 13, 2025 PallMed [facility] notified by nursing pt remains in increased pain, Dilaudid MOVIE THEATER MANAGER needs escalation Dilaudid increased to 0.3mg per hour continuous with 0.7mg q10min prn MOVIE THEATER MANAGER bolus Alos modified IVP DIlaudid to 0.7mg q15min prn if not enough relief from MOVIE THEATER MANAGER Thank you for allowing us to participate in the ongoing care of this patient. Please page with any additional concerns. Kathia Lowe DNP Director, Palliative Medicine
--- NOTE | 2025-05-13 12:18 | Palliative Care Progress Note ---
Date of Service May 13, 2025 Assessment & Plan (1) Cancer related pain: (2) Dyspnea and respiratory abnormalities: (3) Advanced care planning/counseling discussion: Plan: Face to face family ACP wt bedside for 30min with , son, son in law and dtr is very anxious about his uncontrolled and inc pain, resp rate changes and overall sharp inc pain with any efforts to move or reposition She wants to honor his wishes to be home but feels that he may be at a junction where going home will hurt him more than help him family in agreement and state he is no longer awake and alert, where he is may matter less I advised I will ask for GIP eval but that decision re GIP is up to the hospice. Extensive support and reassurance provided (4) Chondrosarcoma: (5) Weakness generalized: (6) Adult failure to thrive: (7) Comfort measures only status: (8) Palliative care by specialist: (9) Cancer cachexia: (10) Severe protein-calorie malnutrition: (11) Lytic bone lesion of hip: Plan Dilaudid dosing adjusted earlier today Family's concerns and pt condition changes were communicated to primary team, nursing and care mgt, we have asked for hospice to eval for GIP instead of going home - unsure he can be safely transported with this degree of pain winder fixer Monica onsite - they agree to admit to GIP Anticipated survival is days, I suspect he is transitioning to active dying Thank you for allowing us to participate in the ongoing care of this patient. Please page with any additional concerns. Kathia Lowe DNP Director, Palliative Medicine Admission and Anticipated Discharge Date Admission Date: May 11, 2025 Subjective See statistical consultant notes - inc pain, Dilaudid adjusted Ativan helped with inc restlessness and myoclonus Family at bedside: , dtr, son, son in law is worried about his pain - any movement triggering severe pain - crying out, grimacing, moaning. She said even repositioning his head and elevating HOB caused a lot of pain At time of my visit he had inc resp rate Review of Systems Review of Systems: Unobtainable due to reduced consciousness Physical Exam Physical Exam: Mk is lying in bed semi reclined, lethargic and not responding to verbal Bitemp wasting He is cachectic and frail He is grimacing and shaking with waves of pain at times He is very pale He appears very uncomfortable Resp effort increasing with use of accessory muscles, diminished breath sounds Tachy S1S2 Abd scaphoid, grimacing with palpation, BS diminished Gen weakness Results & Data Vital Signs (Past 12 Hours) Vital Signs O2 Del Method 05/13/25 07:25 Room Air PG Care Time/CCT Total # of Minutes Spent Total Time Spent with Patient: Total time spent is greater than 50% in coordination of care (as documented) at patient's floor/unit and/or counseling patient: I spent 100 minutes overall addressing this case: 15 min in medical data review/discussion with referring provider(s) and/or preparation for the visit 15 min in direct interaction with the patient/exam 30 min in Advance Care Planning/Goals of Care discussions as detailed above in note (must be >16min) 15 min in subsequent review and synthesis of assessment and plan 25 min communicating with other providers regarding the patient's case: hospice, care mgt, nursing, prmary team Advanced Care Planning 24080 Advanced Care Planning 30 Min [place] [address] SUB INP/OBS CARE 3/50MIN (25 - SIGNIFICANT, SEPARATELY IDENTIFIABLE ) Patient Type Established Medical Decision Making High Complexity Diagnoses Cancer related pain G89.3 Dyspnea and respiratory abnormalities R06.00; R06.89 Advanced care planning/counseling discussion Z71.89 Chondrosarcoma C41.9 Weakness generalized R53.1 Adult failure to thrive R62.7 Comfort measures only status Z51.5 Palliative care by specialist Z51.5 Cancer cachexia R64 Severe protein-calorie malnutrition E43 Lytic bone lesion of hip M89.8X5 Additional Codes Advanced Care Planning - 97354 Advanced Care Planning 30 Min: 79174 Advanced Care Planning 30 Min ([id number]) Comment [id number], [id number] + 20 min prolonged time
--- NOTE | 2025-05-13 15:09 | Discharge Summary ---
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 Decreased food and fluid intake for several days with ongoing nausea. Also not urinating very often. Was admitted to [facility] from 03/23/25-03/26/25 for imaging that was concerning for osseous metastatic disease with malignancy of unknown primary.He went to the hospital with back and right hip pain, found to have a nondisplaced acetabular fracture. Lytic lesions throughout right hip, esophagus and lung that was consistent with metastatic disease. Patient and not agreeable to palliative services at that time, now seeking palliative consult for anticipated home with hospice services. In the ED, patient found to meet sepsis criteria for tachycardia (HR high 90's ) and leukocytosis. Procal 0.8. BioFire negative. Urine negative for UTI. Fluid resuscitation given in ED. IV Cefepime was started for suspected infection. Chest Xray showing new, innumerable solid appearing rounded nodules throughout the lungs; new area of consolidation at the right lung apex; No pneumothorax. Lab workup showing hyponatremia with normal osmolality. Elevated BUN/Creatinine ratio and clinically dry on exam. Troponin elevated to 59.7 and without chest pain. ED provider discussed additional imaging for rule out other infectious etiology, but patient and family declined given poor prognostic value. Patient and agreeable to IV antibiotics, fluids, and pain management with Palliative consult for transition to home hospice. Denies headache, focal symptoms, chest pain, cough, rhinorrhea, abdominal pain, vomiting, numbness/tingling. History obtained primarily from patient and . Admission Exam Per Admitting Provider VITALS: Reviewed. WEIGHT/BMI reviewed. GEN: Frail, malnourished, NAD. PSYCH: Good Judgment. AOx3. Normal memory, mood, and affect. HEENT -Head: NC/AT; -Eyes: PERRL, EOMI. No discharge or redness; -Ears: External ears are normal. Normal TMs. -Nose: Normal nares. -Mouth and throat: Dry mucous membranes. Good dentition. NECK: Supple, with no masses. CV: RRR, no m/r/g. LUNGS: Diminished bilaterally, ABD: Soft, NT/ND, NBS, no masses or organomegaly. : N/A SKIN: Warm, well perfused. No skin rashes or abnormal lesions. MSK: No deformities, Normal gait. EXT: No clubbing, cyanosis, or edema. NEURO: Ambulating with no limitations. Normal muscle strength and tone. No focal deficits. Principal Diagnosis Chondrosarcoma Palliative/ hospice care Discharge Exam Constitutional: Frail, cachectic, in NAD Lungs: Decreased breath sounds CV: S1-S2, regular Abdomen: Soft, nontender, nondistended Extremities: No significant edema Neuro: not responsive to voice or touch Discharge Data Allergies Allergy/AdvReac Type Severity Reaction Status Date / Time naproxen Allergy Intermediate "I get Verified 05/11/25 17:20 numb in my face" Bee stings Allergy Severe Swelling Uncoded 05/11/25 17:20 Consultations 05/11/25 17:07 ED Decision to Admit Stat 05/11/25 18:07 Consult Palliative Care Routine Hospital Course (1) Comfort measures only status: (2) Cancer-related breakthrough pain: (3) Cancer cachexia: (4) Disseminated malignant neoplasm: (5) Chondrosarcoma: (6) Severe protein-calorie malnutrition: Plan Patient is a 74-year-old gentleman with 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 Presents with uncontrolled breakthrough cancer pain. Patient, and family requesting management of his pain and arrangements for hospice. SCALDER pump was restarted with basal rate and as needed boluses. Palliative care involved in and helping to coordinate comfort care measures and medications. Continue to use as needed Ativan for any type of myoclonus or tremor that may be associated with SCALDER. Continue to evaluate patient's comfort needs Patient in more discomfort this morning - discussed w/ Dr. Lowe (palliative care) and SCALDER dose adjusted. Pt's does not feel she can take pt home and so in process of admitting pt under [facility] hospice. Total Time Total Time Spent Total Time Spent (In Minutes): 40 Discharge Plan Discharge Items Patient Disposition: Hospice - Medical Facility Reason For Visit: PAIN Discharge Diagnosis: Chondrosarcoma Palliative/ hospice care Condition on Discharge: Serious Activity: Per Instructions section Non-emergency contact: Specialist Call non-emergency contact if: you have any medication questions and your symptoms worsen Follow-up/Referrals: Tod Benavides MD [Primary Care Provider] - Diet: Regular Diet Texture: Easy to Chew Addtl Attending Provider Instructions: Patient to be discharged and admitted under [facility] hospice. Pending Studies at Discharge: Yes Studies:: blood cultx results Stand-Alone Forms: My [facility] Skilled Items Patient informed of condition?: Yes DNR: Yes Discharge Level of Care: Other Communicable Disease: No Discharge Prognosis: Other Lines: None Medications and DC Order Prescriptions: Discontinued gabapentin 100 mg capsule 400 mg PO BID morphine [MS Contin] 15 mg tablet extended release 15 mg PO TID hydromorphone [Dilaudid] 4 mg tablet 4 mg PO Q3H PRN (Reason: Pain) polyethylene glycol 3350 [Miralax] 17 gram powder in packet 17 g PO BID Movantik 25 mg tablet 25 mg PO QAM Rx Instructions: must be taken on empty stomach; no food 1 hr after or 2-3 hrs before dose dexamethasone 4 mg tablet 4 mg PO BID sennosides [Senna Lax] 8.6 mg tablet 8.6 mg PO BID PRN (Reason: Constipation) loteprednol etabonate 0.5 % drops,gel 0 drp ophthalmic (eye) UD Patient Comments: 03/23- last filled 11/28 50 day supply timolol maleate 0.5 % drops, once daily 0 drp ophthalmic (eye) DAILY Patient Comments: 03/23- last filled 07/12/24 100 day supply multivitamin [Daily Multi-Vitamin] tablet 1 tab PO DAILY Patient Comments: 03/23- otc unable to verify ascorbate calcium (vitamin C) 500 mg tablet 500 mg PO DAILY Patient Comments: 03/23- otc unable to verify omeprazole 40 mg capsule,delayed release(DR/EC) 40 mg PO DAILY metoprolol succinate 25 mg tablet extended release 24 hr 25 mg PO BID rosuvastatin 10 mg tablet 10 mg PO DAILY acetaminophen [Tylenol Extra Strength] 500 mg Tablet 1,000 mg PO TID Qty: 300 0RF coenzyme Q10 [CoQ-10] 30 mg Capsule 30 mg PO DAILY Discharge Orders: Discharge Order (Routine); Ordered 05/13/25 Ordered By: Tacho Wheeler Admission Data Admit Date/Time: 05/11/25 18:16 Attending Provider: Tacho Wheeler Admit Provider: Dennys Aguirre Primary Care Provider: Tod Benavides Other Providers: Nola Kaminski; Shanice Lowe; Dennys Aguirre; [facility]; Juno Huff
== END 2025-05-13 15:09 | disposition hospice, inpatient (51) | DRG 193 ==
LOC: ED 15:05 → SUATTDRO 18:16 → 3E 18:16